=== PATIENT | female | born 1985 | race Caucasian/White ===

== ENCOUNTER 2018-11-16 13:02 | Outpatient (CLI) | payer BC ==
[~2018-11-16] VITALS: Ht 152.4 cm; Wt 54.1 kg
[2018-11-16] MEDS ORDERED: FLUO40CA12 PO (13:19)
[2018-11-16] MEDS ORDERED: DOCU-238 PO (13:19)
[2018-11-16 13:22] VITALS: BP 112/74
[2018-11-16 14:15] LABS: BASOPHILS # (AUTO) 0.1 10^3/uL (0.0-0.1); BASOPHILS % (AUTO) 1 % (0-10); EOSINOPHILS # (AUTO) 0.2 10^3/uL (0.0-0.3); EOSINOPHILS % (AUTO) 3 % (0-10); HEMATOCRIT 38 % (35-52); HEMOGLOBIN 12.2 G/DL (11.5-16.0); LYMPHOCYTES # (AUTO) 1.5 X 10^3 (1.0-4.0); LYMPHOCYTES % (AUTO) 28 % (12-44); MEAN CORPUSCULAR HEMOGLOBIN 31 PG (25-34); MEAN CORPUSCULAR HGB CONC 32 G/DL (32-36); MEAN CORPUSCULAR VOLUME 96 FL (80-99); MEAN PLATELET VOLUME 10.9 FL (7.4-10.4); MONOCYTES # (AUTO) 0.5 X 10^3 (0.0-1.0); MONOCYTES % (AUTO) 9 % (0-12); NEUTROPHILS # (AUTO) 3.3 X 10^3 (1.8-7.8); NEUTROPHILS % (AUTO) 59 % (42-75); PLATELET COUNT 263 10^3/uL (130-400); RED BLOOD COUNT 3.95 10^6/uL (4.35-5.85); RED CELL DISTRIBUTION WIDTH 13.6 % (10.0-14.5); WHITE BLOOD COUNT 5.6 10^3/uL (4.3-11.0)
[2018-11-16 14:15] LABS: BILIRUBIN,URINE NEGATIVE (NEGATIVE); CLARITY,URINE CLEAR; COLOR,URINE YELLOW; GLUCOSE, URINE (UA) NEGATIVE (NEGATIVE); KETONES,URINE NEGATIVE (NEGATIVE); LEUKOCYTE ESTERASE ,URINE NEGATIVE (NEGATIVE); NITRITE,URINE NEGATIVE (NEGATIVE); PH,URINE 8 (5-9); PROTEIN,URINE NEGATIVE (NEGATIVE); UROBILINOGEN,URINE NORMAL (NORMAL)
[2018-11-16 14:24] LABS: BACTERIA,URINE NEGATIVE /HPF; RBC,URINE RARE /HPF; SQUAMOUS EPITHELIAL CELL,UR 0-2 /HPF
[2018-11-18] MEDS ORDERED: HYDR-34 PO (03:07)
[2018-11-18] MEDS ORDERED: Benzocaine/Menthol TP (03:07)
[2018-11-18] MEDS ORDERED: IBUP-844 PO (03:07)
== END 2018-11-16 16:38 | disposition home or self-care (01) ==
LOC: PREOP 13:02
PROVIDERS: ATTEND Obstetrics & Gynecology
DX: Z01.812 Encounter for preprocedural laboratory examination (principal); Z11.2 Encounter for screening for other bacterial diseases; N81.10 Cystocele, unspecified; N81.6 Rectocele; N39.3 Stress incontinence (female) (male)
CPT/HCPCS: 36415; 81000; 84703; 85025; 87081

== ENCOUNTER 2018-11-17 08:45 | Day surgery (SDC) | payer BC ==
[~2018-11-17] VITALS: Ht 152.4 cm; Wt 54.1 kg
[~2018-11-17 08:45] MED LIST: DOCU-238 PO; FLUO40CA12 PO
--- OUTSIDE RECORDS SUMMARY | 2018-11-17 08:53 | XMS REPORT ---
Author Author ALVARADO ESCUDERO [facility] Address [address] [place] [address] Care Team Providers Care Economic Specialist Name Role Phone ALVARADO ESCUDERO Unavailable PROBLEMS Unknown Problems ALLERGIES No Known Allergies ENCOUNTERS Encounter Location Date Diagnosis [facility] [id number] [place] [address] [id number] Dec, Strep pharyngitis J02.0 and Influenza J11.1 [place] [id number] [place] [address] [id number] Oct, Sore throat J02.9 and PND (post-nasal drip) R09.82 [place] [address] [address] Mar, [facility] [address] [address] Mar, [place] [id number] [place] [address] [id number] Oct, [facility] [address] [address] Oct, [place] [id number] [place] [address] [phone] Jan, [facility] [address] [address] Dec, [place] [id number] [place] [address] [phone] Dec, IMMUNIZATIONS No Known Immunizations SOCIAL HISTORY Never Assessed REASON FOR VISIT Sore throat, fever, body aches, headache started yesterday Kalpana CHAVEZ PLAN OF CARE Activity Details Follow Up prn Reason: VITAL SIGNS Height 63 in 2017-12-09 Weight 114.1 lbs 2017-12-09 Temperature 102.5 degrees Fahrenheit 2017-12-09 Heart Rate 90 bpm 2017-12-09 Respiratory Rate 18 2017-12-09 BMI 20.21 kg/m2 2017-12-09 Blood pressure systolic 110 mmHg 2017-12-09 Blood pressure diastolic 60 mmHg 2017-12-09 MEDICATIONS Medication Instructions Dosage Frequency Start Date End Date Duration Status Amoxicillin 500 mg Orally 3 times a day 1 tablet 8h Dec, Dec, 10 days Active Tamiflu 75 MG Orally Twice a day 1 capsule 12h Dec, 5 day(s) Active RESULTS Name Result Date Reference Range INFLUENZA A & B (IN HOUSE) 2017-12-09 INFLUENZA A negative INFLUENZA B negative Control positive Lot # [id number] Exp date 01/03/20 STREP A (IN HOUSE) 2017-12-09 STREP A positive Control positive Lot # [id number] Exp date 07/19 PROCEDURES Procedure Date Ordered Result Body Site STREP A ASSAY W/OPTIC Dec 09, 2017 INFLUENZA ASSAY W/OPTIC Dec 09, 2017 INSTRUCTIONS MEDICATIONS ADMINISTERED No Known Medications MEDICAL (GENERAL) HISTORY Type Description Date Surgical History oral surgery Hospitalization History childbirth only
--- OUTSIDE RECORDS SUMMARY | 2018-11-17 08:53 | XMS REPORT ---
Author Author JENNIFER ABAD Organization [facility] Address [address] [place] [address] Care Team Providers Care Technology Training Associate Name Role Phone JENNIFER ABAD Unavailable PROBLEMS Unknown Problems ALLERGIES No Known Allergies ENCOUNTERS Encounter Location Date Diagnosis [facility] [id number] [place] [id number] Dec, Strep pharyngitis J02.0 and Influenza J11.1 [place] [id number] [place] [address] [id number] Oct, Sore throat J02.9 and PND (post-nasal drip) R09.82 [place] [address] [place] [id number] [place] [phone] Mar, [place] [id number] [address] Mar, [facility] [id number] [place] [address] [phone] Oct, [facility] [id number] [place] [phone] Oct, [place] [id number] [place] [address] [phone] Jan, [facility] [id number] [place] [phone] Dec, [address] [id number] Dec, IMMUNIZATIONS No Known Immunizations SOCIAL HISTORY Never Assessed REASON FOR VISIT Sore Throat, cough for 2 days Liliane AVENDANO PLAN OF CARE Activity Details Follow Up if s/s not improving with PCP or in Clinic Reason: VITAL SIGNS Height 63 in 2017-11-04 Weight 114.0 lbs 2017-11-04 Temperature 98.1 degrees Fahrenheit 2017-11-04 Heart Rate 72 bpm 2017-11-04 Respiratory Rate 18 2017-11-04 BMI 20.19 kg/m2 2017-11-04 Blood pressure systolic 100 mmHg 2017-11-04 Blood pressure diastolic 62 mmHg 2017-11-04 MEDICATIONS Medication Instructions Dosage Frequency Start Date End Date Duration Status Amoxicillin 500 mg Orally every 12 hrs 1 capsule 12h Oct, Oct, 10 day(s) Active RESULTS Name Result Date Reference Range STREP A (IN HOUSE) 2017-11-04 STREP A positive Control positive Lot # [id number] Exp date 06/18 PROCEDURES Procedure Date Ordered Result Body Site STREP A ASSAY W/OPTIC Nov 04, 2017 INSTRUCTIONS MEDICATIONS ADMINISTERED No Known Medications MEDICAL (GENERAL) HISTORY Type Description Date Surgical History oral surgery Hospitalization History childbirth only
--- OUTSIDE RECORDS SUMMARY | 2018-11-17 08:54 | XMS REPORT | CCD ---
Author Author Lydia Mehta MD, [facility] Address [address] [place] [address] Phone Care Team Providers Care Youth [employer] Director Name Role Phone PP Unavailable CCM Unavailable Summary Purpose Interface Exchange Insurance Providers Payer name Policy type / Coverage type Covered alliance party ID Effective Begin Date Effective End Date [place] [employer] [facility] [employer]/[facility] [id number] 2017 Unknown Family history Side Diagnosis Age At Onset *Denies any medical problems Unknown Side Diagnosis Age At Onset *Denies any medical problems Unknown Social History Social History Element Codes Description Effective Dates Number of children Unknown 2 08/06/[address]: 824719894 Never smoker 09/08/2014 Alcohol history Unknown occasionally drinks alcohol 09/08/2014 Allergies, Adverse Reactions, Alerts Substance Reaction Codes Entered Date Inactivated Date Status * NO KNOWN DRUG ALLERGIES Unknown 08/02/2011 No Inactive Date Active * NO KNOWN FOOD ALLERGIES Unknown 09/08/2014 No Inactive Date Active Past Medical History Illness Codes Condition Status Onset Date Resolved Date Cystocele, unspecified ICD-9: 618.00 ICD-10: N81.10 Active 11/02/2018 Unknown Uterovaginal prolapse, unspecified ICD-9: 618.1 ICD-10: N81.4 Active 11/02/2018 Unknown Generalized anxiety disorder ICD-9: 300.00 ICD-10: F41.1 Active 02/26/2018 Unknown Major depressive disorder, single episode, moderate ICD-9: 296.22 ICD-10: F32.1 Active 02/26/2018 Unknown Premenstrual tension syndrome ICD-9: 625.4 ICD-10: N94.3 Active 07/06/2018 Unknown Encounter for general adult medical examination with abnormal findings ICD-9: V70.0 ICD-10: Z00.01 Active 01/22/2018 Unknown Other fatigue ICD-9: 780.79 ICD-10: R53.83 Active 01/22/2018 Unknown Pelvic and perineal pain ICD-9: 625.9 ICD-10: R10.2 Active 01/22/2018 Unknown Constipation - functional ICD-9: 564.09 Active 09/08/2014 Unknown Depression ICD-9: 311 Active 09/08/2014 Unknown Fatigue ICD-9: 780.79 Active 09/08/2014 Unknown FLATUL/ERUCTAT/GAS PAIN ICD-9: 787.3 Active 09/08/2014 Unknown Menstrual irregularity ICD-9: 626.4 Active 09/08/2014 Unknown Depression Unknown Active 06/12/2012 Unknown Mole (skin) ICD-9: 216.9 Active 06/12/2012 Unknown Anemia Unknown Active 08/02/2011 Unknown Pharyngitis ICD-9: 462 Active 08/02/2011 Unknown Problems Condition Codes Effective Dates Condition Status Cystocele, unspecified ICD-9: 618.00 ICD-10: N81.10 11/02/2018 Active Uterovaginal prolapse, unspecified ICD-9: 618.1 ICD-10: N81.4 11/02/2018 Active Generalized anxiety disorder ICD-9: 300.00 ICD-10: F41.1 02/26/2018 Active Major depressive disorder, single episode, moderate ICD-9: 296.22 ICD-10: F32.1 02/26/2018 Active Premenstrual tension syndrome ICD-9: 625.4 ICD-10: N94.3 07/06/2018 Active Encounter for general adult medical examination with abnormal findings ICD-9: V70.0 ICD-10: Z00.01 01/22/2018 Active Other fatigue ICD-9: 780.79 ICD-10: R53.83 01/22/2018 Active Pelvic and perineal pain ICD-9: 625.9 ICD-10: R10.2 01/22/2018 Active Constipation - functional ICD-9: 564.09 09/08/2014 Active Depression ICD-9: 311 09/08/2014 Active Fatigue ICD-9: 780.79 09/08/2014 Active FLATUL/ERUCTAT/GAS PAIN ICD-9: 787.3 09/08/2014 Active Menstrual irregularity ICD-9: 626.4 09/08/2014 Active Depression Unknown 06/12/2012 Active Mole (skin) ICD-9: 216.9 06/12/2012 Active Anemia Unknown 08/02/2011 Active Pharyngitis ICD-9: 462 08/02/2011 Active Medications Medication Codes Instructions Start Date Stop Date Status Fill Instructions naproxen 500 mg tablet RxNorm: 180617 1 Tablet(s) PO BID 201711/06/2018 Active Prozac 40 mg capsule RxNorm: 791412 1 Capsule(s) PO daily 08/1811/15/2018 Active Prozac 40 mg capsule RxNorm: 923484 1 Capsule(s) PO daily 08/0607/31/2019 Active Prozac 40 mg capsule RxNorm: 165739 1 Capsule(s) PO daily 07/0608/04/2018 Inactive Prozac 20 mg capsule RxNorm: 926540 1 Capsule(s) PO daily 07/0107/30/2018 Inactive Prozac 20 mg capsule RxNorm: 856024 1 Capsule(s) PO daily 02/2605/26/2018 Inactive nystatin 100,000 unit/gram topical cream RxNorm: 306803 1 Gram(s) TOP BID as needed 01/22/2018 No Stop Date Active Diflucan 150 mg tablet RxNorm: 504763 1 Tablet(s) PO daily 01/28/2018 Inactive Prozac 10 mg capsule RxNorm: 528372 1 Capsule(s) PO daily 01/2202/20/2018 Inactive escitalopram 10 mg tablet RxNorm: 331244 1 Tablet(s) PO daily 09/08/2014 01/18/2018 Inactive Celexa 20 mg Tab RxNorm: 314068 1 Tablet(s) PO daily 201112/08/2012 Inactive Zithromax Z-Car 250 mg Tab RxNorm: 335283 Tablet(s) PO UD No Start Date 06/11/2012 Inactive + Iron Oral RxNorm: Oral No Start Date 06/11/2012 Inactive Loestrin 24 Fe 1 mg-20 mcg (24)/75 mg (4) Tab RxNorm: 4565702 1 Tablet(s) PO daily No Start Date 09/07/2014 Inactive Celexa 20 mg Tab RxNorm: 235373 1 Tablet(s) PO daily No Start Date 09/07/2014 Inactive Medication Administered No Medication Administered data Immunizations No Immunization data Assessments Condition Codes Effective Dates Uterovaginal prolapse, unspecified ICD-10: N81.4 ICD-9: 618.1 11/02/2018 Cystocele, unspecified ICD-10: N81.10 ICD-9: 618.00 11/02/2018 Generalized anxiety disorder ICD-10: F41.1 ICD-9: 300.00 08/06/2018 Premenstrual tension syndrome ICD-10: N94.3 ICD-9: 625.4 08/06/2018 Major depressive disorder, single episode, moderate ICD-10: F32.1 ICD-9: 296.22 08/06/2018 Pelvic and perineal pain ICD-10: R10.2 ICD-9: 625.9 01/22/2018 Encounter for general adult medical examination with abnormal findings ICD-10: Z00.01 ICD-9: V70.0 01/22/2018 Other fatigue ICD-10: R53.83 ICD-9: 780.79 01/22/2018 Depression ICD-9: 311 09/08/2014 FLATUL/ERUCTAT/GAS PAIN ICD-9: 787.3 08/2014 Fatigue ICD-9: 780.79 09/08/2014 Menstrual irregularity ICD-9: 626.4 09/08 Constipation - functional ICD-9: 564.09 09/08/2014 Mole (skin) ICD-9: 216.9 06/12/2012 Pharyngitis ICD-9: 462 08/02/2011 Reason For Visit Reason For Visit Effective Dates Notes pelvic pain 11/02/2018 medication follow up 08/06/2018 medication follow up 07/06/2018 medication follow up 02/26/2018 well woman exam (18-39 years) 01/22/2018 medication follow up 09/08/2014 fatigue 06/12/2012 also very [place] sore throat 08/02/2011 Results Observation Observation Code Item Item Code Result Date Cbc With Differential Ord2 WBC 6.91 K/ul 01/22/2018 Cbc With Differential Ord2 RBC 4.02 M/ul 01/22/2018 Cbc With Differential Ord2 HGB 12.5 g/dl 01/22/2018 Cbc With Differential Ord2 HCT 39.4 % 01/22/2018 Cbc With Differential Ord2 Neut% 58.9 % 01/22/2018 Cbc With Differential Ord2 Lymph% 26.5 % 01/22/2018 Cbc With Differential Ord2 MCV 98.0 fl 01/22/2018 Cbc With Differential Ord2 MCH 31.1 pg 01/22/2018 Cbc With Differential Ord2 Scurry% 10.7 % 01/22/2018 Cbc With Differential Ord2 MCHC 31.7 pg 01/22/2018 Cbc With Differential Ord2 Eos% 3.3 % 01/22/2018 Cbc With Differential Ord2 PLT 275 K/ul 01/22/2018 Cbc With Differential Ord2 Baso% 0.6 % 01/22/2018 Cbc With Differential Ord2 RDW 14.9 % 01/22/2018 Cbc With Differential Ord2 Neut ABS# 4.07 K/ul 01/22/2018 Cbc With Differential Ord2 Lymph ABS# 1.83 K/ul 01/22/2018 Cbc With Differential Ord2 Scurry ABS# 0.7 K/ul 01/22/2018 Cbc With Differential Ord2 Eos ABS# 0.2 K/ul 01/22/2018 Cbc With Differential Ord2 Baso ABS# 0.0 K/ul 01/22/2018 Lipid Ord30 CHOL 164 mg/dL 01/22/2018 Lipid Ord30 HDL 64.0 mg/dl 01/22/2018 Lipid Ord30 TRIG 87 mg/dL 01/22/2018 Lipid Ord30 LDL 83 mg/dL 01/22/2018 Lipid Ord30 C/HDL 2.6 Ratio 01/22/2018 Comp Metabolic Hdj988 NA 142 mEq/L 01/22/2018 Comp Metabolic Jja205 K 3.7 mEq/L 01/22/2018 Comp Metabolic Dgc416 CL 105 mEq/L 01/22/2018 Comp Metabolic Kez128 CO2 30.0 mEq/L 01/22/2018 Comp Metabolic Qlw237 ANION GAP 11 01/22/2018 Comp Metabolic Kgt369 GLUCOSE 81 mg/dL 01/22/2018 Comp Metabolic Qjg254 Creat 0.6 mg/dL 01/22/2018 Comp Metabolic Xbf169 eGFR 121 ml/min/1.73m2 01/22/2018 Comp Metabolic Bxz760 BUN 11 mg/dL 01/22/2018 Comp Metabolic Riz761 B/C Ratio 18.0 Ratio 01/22/2018 Comp Metabolic Fhc531 CALCIUM 9.9 mg/dL 01/22/2018 Comp Metabolic Nvx155 ALK PHOS 73 U/L 01/22/2018 Comp Metabolic Qzi732 AST(SGOT) 21 U/L 01/22/2018 Comp Metabolic Syd997 ALT(SGPT) 12 U/L 01/22/2018 Comp Metabolic Rdj777 BILI T 0.4 mg/dL 01/22/2018 Comp Metabolic Fes707 ALBUMIN 4.7 g/dL 01/22/2018 Comp Metabolic Xlt040 TPRO 7.8 g/dL 01/22/2018 Comp Metabolic Gxi151 GLOB 3.1 g/dL 01/22/2018 Comp Metabolic Biy014 A/G Ratio 1.5 Ratio 01/22/2018 Comp Metabolic Zxj489 Osmo 282 mOsmo 01/22/2018 Tsh Ord6 TSH (3rd IS) 2.35 uIU/mL 01/22/2018 Review of Systems System Result Effective Dates Constitutional No recent illness 2017 Constitutional No chills 11/02/2018 Constitutional No diaphoresis 11/02/2018 Constitutional No fever 11/02/2018 Eyes No eye erythema 11/02/2018 Ears/Nose/Throat/Neck No nasal discharge 11/02/2018 Cardiovascular No chest pain/pressure 01/2018 Cardiovascular No dyspnea 11/02/2018 Respiratory No cough 11/02/2018 Gastrointestinal abdominal pain 2017 Genitourinary/Nephrology No vaginal discharge 11/02/2018 Neurologic No alteration of consciousness 11/02/2018 Neurologic No mental status change 2017 Constitutional No recent illness 2017 Constitutional No chills 08/06/2018 Constitutional No diaphoresis 08/06/2018 Constitutional No fever 08/06/2018 Eyes No eye erythema 08/06/2018 Ears/Nose/Throat/Neck No nasal allergies 08/06/2018 Ears/Nose/Throat/Neck No nasal discharge 08/06/2018 Cardiovascular No chest pain/pressure 05/2018 Cardiovascular No dyspnea 08/06/2018 Respiratory No chest congestion 2017 Respiratory No cough 08/06/2018 Gastrointestinal No abdominal pain 2017 Gastrointestinal No constipation 2017 Gastrointestinal No diarrhea 08/06/2018 Musculoskeletal No joint complaint 2017 Dermatologic No rash 08/06/2018 Neurologic No alteration of consciousness 08/06/2018 Neurologic No mental status change 2017 Psychiatric anxiety 08/06/2018 Psychiatric depression 08/06/2018 Constitutional No recent illness 2017 Constitutional No chills 07/06/2018 Constitutional No diaphoresis 07/06/2018 Constitutional No fever 07/06/2018 Eyes No eye erythema 07/06/2018 Ears/Nose/Throat/Neck No nasal allergies 07/06/2018 Ears/Nose/Throat/Neck No nasal discharge 07/06/2018 Cardiovascular No chest pain/pressure 05/2018 Cardiovascular No dyspnea 07/06/2018 Respiratory No chest congestion 2017 Respiratory No cough 07/06/2018 Gastrointestinal No abdominal pain 2017 Gastrointestinal No constipation 2017 Gastrointestinal No diarrhea 07/06/2018 Musculoskeletal No joint complaint 2017 Dermatologic No rash 07/06/2018 Neurologic No alteration of consciousness 07/06/2018 Neurologic No mental status change 2017 Psychiatric anxiety 07/06/2018 Psychiatric depression 07/06/2018 Constitutional No recent illness 2017 Constitutional No chills 02/26/2018 Constitutional No diaphoresis 02/26/2018 Constitutional No fever 02/26/2018 Ears/Nose/Throat/Neck No nasal discharge 02/26/2018 Ears/Nose/Throat/Neck No nasal allergies 02/26/2018 Eyes No eye erythema 02/26/2018 Cardiovascular No chest pain/pressure Cardiovascular No dyspnea 02/26/2018 Respiratory No cough 02/26/2018 Respiratory No chest congestion 2017 Gastrointestinal No abdominal pain 2017 Gastrointestinal No constipation 2017 Gastrointestinal No diarrhea 02/26/2018 Musculoskeletal No joint complaint 2017 Dermatologic No rash 02/26/2018 Neurologic No alteration of consciousness 02/26/2018 Neurologic No mental status change 2017 Psychiatric anxiety 02/26/2018 Psychiatric depression 02/26/2018 Constitutional recent illness 01/22/2018 Constitutional No chills 01/22/2018 Constitutional No diaphoresis 01/22/2018 Constitutional No fever 01/22/2018 Eyes No eye erythema 01/22/2018 Ears/Nose/Throat/Neck No nasal discharge 01/22/2018 Cardiovascular No chest pain/pressure Cardiovascular No dyspnea 01/22/2018 Respiratory No cough 01/22/2018 Respiratory No chest congestion 2017 Gastrointestinal No abdominal pain 2017 Genitourinary/Nephrology dysuria 2017 Genitourinary/Nephrology pelvic pain Dermatologic No rash 01/22/2018 Neurologic No alteration of consciousness 01/22/2018 Neurologic No mental status change 2017 Psychiatric anxiety 01/22/2018 Psychiatric depression 01/22/2018 Constitutional No recent illness 2013 Constitutional No anorexia 09/08/2014 Constitutional No night sweats 2013 Constitutional No chills 09/08/2014 Constitutional No diaphoresis 09/08/2014 Constitutional No fever 09/08/2014 Constitutional No insomnia 09/08/2014 Eyes No eye discharge 09/08/2014 Eyes No eye erythema 09/08/2014 Ears/Nose/Throat/Neck No dizziness 2013 Ears/Nose/Throat/Neck No headache 2013 Ears/Nose/Throat/Neck No nasal allergies 09/08/2014 Ears/Nose/Throat/Neck No nasal discharge 09/08/2014 Cardiovascular No chest pain/pressure 08/2014 Respiratory No productive sputum 2013 Respiratory No chest congestion 2013 Respiratory No cough 09/08/2014 Gastrointestinal No diarrhea 09/08/2014 Gastrointestinal No nausea 09/08/2014 Gastrointestinal No vomiting 09/08/2014 Genitourinary/Nephrology No dysuria 09/08 Musculoskeletal No joint complaint 2013 Neurologic No alteration of consciousness 09/08/2014 Hematologic/Lymphatic No abnormal ecchymoses 09/08/2014 Hematologic/Lymphatic No petechiae 2013 Hematologic/Lymphatic No abnormal bleeding and bruising 09/08/2014 Hematologic/Lymphatic anemia 09/08/2014 Allergy/Immunology No anaphylactoid reaction 09/08/2014 Allergy/Immunology No angioedema 2013 Allergy/Immunology No food allergy 2013 Psychiatric depression 09/08/2014 Psychiatric No anxiety 09/08/2014 Dermatologic No rash 09/08/2014 Genitourinary/Nephrology menstrual irregularity 09/08/2014 Gastrointestinal constipation 09/08/2014 Gastrointestinal gas and bloating 2013 Constitutional malaise 09/08/2014 Constitutional fatigue 09/08/2014 Constitutional No recent illness 2011 Constitutional No anorexia 06/12/2012 Constitutional No chills 06/12/2012 Constitutional No night sweats 2011 Constitutional No diaphoresis 06/12/2012 Constitutional No fever 06/12/2012 Constitutional No insomnia 06/12/2012 Constitutional No malaise 06/12/2012 Eyes No eye discharge 06/12/2012 Eyes No eye erythema 06/12/2012 Ears/Nose/Throat/Neck No dizziness 2011 Ears/Nose/Throat/Neck No headache 2011 Ears/Nose/Throat/Neck No nasal allergies 06/12/2012 Ears/Nose/Throat/Neck No nasal discharge 06/12/2012 Cardiovascular No chest pain/pressure Respiratory No productive sputum 2011 Respiratory No chest congestion 2011 Respiratory No cough 06/12/2012 Gastrointestinal No vomiting 06/12/2012 Gastrointestinal No nausea 06/12/2012 Gastrointestinal No abdominal pain 2011 Gastrointestinal No constipation 2011 Gastrointestinal No diarrhea 06/12/2012 Genitourinary/Nephrology No dysuria 06/12 Musculoskeletal No joint complaint 2011 Neurologic No alteration of consciousness 06/12/2012 Hematologic/Lymphatic No abnormal ecchymoses 06/12/2012 Hematologic/Lymphatic No petechiae 2011 Hematologic/Lymphatic No abnormal bleeding and bruising 06/12/2012 Allergy/Immunology No anaphylactoid reaction 06/12/2012 Allergy/Immunology No angioedema 2011 Allergy/Immunology No food allergy 2011 Hematologic/Lymphatic anemia 06/12/2012 Gastrointestinal No nausea 08/02/2011 Gastrointestinal No vomiting 08/02/2011 Constitutional No fever 08/02/2011 Constitutional No insomnia 08/02/2011 Eyes No eye discharge 08/02/2011 Eyes No eye erythema 08/02/2011 Ears/Nose/Throat/Neck No facial pain 01/2011 Ears/Nose/Throat/Neck No facial swelling 08/02/2011 Ears/Nose/Throat/Neck No nasal allergies 08/02/2011 Ears/Nose/Throat/Neck No nasal discharge 08/02/2011 Ears/Nose/Throat/Neck No sinus congestion 08/02/2011 Cardiovascular No fatigue 08/02/2011 Cardiovascular No edema 08/02/2011 Cardiovascular No chest pain/pressure 01/2011 Respiratory No chest congestion 2010 Respiratory No chest tightness 2010 Respiratory No cough 08/02/2011 Gastrointestinal No abdominal pain 2010 Gastrointestinal No constipation 2010 Gastrointestinal No diarrhea 08/02/2011 Physical Exam Exam Name System Name Item Name Status Result Effective Dates Notes Full Exam - Genitourinary/Female Constitutional general appearance Overall: well nourished 11/02/2018 None Full Exam - Genitourinary/Female Constitutional general appearance Overall: well developed 11/02/2018 None Full Exam - Genitourinary/Female Constitutional general appearance Overall: in no acute distress 11/02/2018 None Full Exam - Genitourinary/Female Eyes conjunctiva/eyelids Overall: eyelids normal 11/02/2018 None Full Exam - Genitourinary/Female Eyes conjunctiva/eyelids Overall: cornea clear 11/02/2018 None Full Exam - Genitourinary/Female Eyes conjunctiva/eyelids Overall: conjunctiva clear 11/02/2018 None Full Exam - Genitourinary/Female Ears/Nose/Throat oral cavity/pharynx/larynx Overall: oral mucosa clear 11/02/2018 None Full Exam - Genitourinary/Female Ears/Nose/Throat lips/teeth/gingiva Overall: benign lips 11/02/2018 None Full Exam - Genitourinary/Female Respiratory respiratory effort/rhythm Overall: normal rate 11/02/2018 None Full Exam - Genitourinary/Female Respiratory respiratory effort/rhythm Overall: no retractions 11/02/2018 None Full Exam - Genitourinary/Female Genitourinary bladder Palpation: cystocele 2nd degree 11/02/2018 None Full Exam - Genitourinary/Female Genitourinary uterus Position: prolapse 11/02/2018 None Full Exam - Genitourinary/Female Musculoskeletal gait and station Overall: normal station 11/02/2018 None Full Exam - Genitourinary/Female Musculoskeletal gait and station Overall: normal gait 11/02/2018 None Full Exam - Genitourinary/Female Neurologic mood and affect Overall: normal affect 11/02/2018 None Full Exam - Genitourinary/Female Neurologic mood and affect Overall: normal mood 11/02/2018 None Full Exam - Genitourinary/Female Neurologic orientation Overall: oriented to person, place and time 11/02/2018 None Full Exam - Genitourinary/Female Psychiatric orientation/consciousness Overall: oriented to person, place and time 11/02/2018 None Full Exam - Genitourinary/Female Psychiatric appearance Overall: well-groomed, good eye contact 11/02/2018 None Full Exam - General 1995 Constitutional general appearance Overall: well developed 08/06/2018 None Full Exam - General 1994 Constitutional general appearance Overall: in no acute distress 08/06/2018 None Full Exam - General 1995 Constitutional general appearance Overall: well nourished 08/06/2018 None Full Exam - General 1995 Eyes conjunctiva /eyelids Overall: conjunctiva clear 08/06/2018 None Full Exam - General 1995 Eyes conjunctiva /eyelids Overall: cornea clear 08/06/2018 None Full Exam - General 1994 Eyes conjunctiva /eyelids Overall: eyelids normal 08/06/2018 None Full Exam - General 1995 Ears/Nose/Throat lips/teeth/gingiva Overall: benign lips 08/06/2018 None Full Exam - General 1995 Ears/Nose/Throat oral cavity/pharynx/larynx Overall: oral mucosa clear 08/06/2018 None Full Exam - General 1994 Respiratory auscultation Overall: breath sounds clear bilaterally 08/06/2018 None Full Exam - General 1994 Respiratory respiratory effort/rhythm Overall: no retractions 08/06/2018 None Full Exam - General 1994 Respiratory respiratory effort/rhythm Overall: normal rate 08/06/2018 None Full Exam - General 1994 Cardiovascular auscultation of heart Overall: regular rate 08/06/2018 None Full Exam - General 1994 Cardiovascular auscultation of heart Overall: normal heart sounds 08/06/2018 None Full Exam - General 1994 Musculoskeletal gait and station Overall: normal gait 08/06/2018 None Full Exam - General 1994 Musculoskeletal gait and station Overall: normal station 08/06/2018 None Full Exam - General 1994 Musculoskeletal head and neck Overall: head atraumatic 08/06/2018 None Full Exam - General 1994 Neurologic cranial nerves Overall: crainial nerves 2 - 12 grossly intact 08/06/2018 None Full Exam - General 1994 Psychiatric orientation/consciousness Overall: oriented to person, place and time 08/06/2018 None Full Exam - General 1994 Psychiatric mood and affect Overall: normal mood and affect 08/06/2018 None Full Exam - General 1994 Psychiatric appearance Overall: well-groomed, good eye contact 08/06/2018 None Full Exam - General 1994 Constitutional general appearance Overall: well developed 07/06/2018 None Full Exam - General 1994 Constitutional general appearance Overall: in no acute distress 07/06/2018 None Full Exam - General 1994 Constitutional general appearance Overall: well nourished 07/06/2018 None Full Exam - General 1994 Eyes conjunctiva /eyelids Overall: conjunctiva clear 07/06/2018 None Full Exam - General 1994 Eyes conjunctiva /eyelids Overall: cornea clear 07/06/2018 None Full Exam - General 1994 Eyes conjunctiva /eyelids Overall: eyelids normal 07/06/2018 None Full Exam - General 1995 Ears/Nose/Throat otoscopic exam Overall: external auditory canals clear 07/06/2018 None Full Exam - General 1994 Ears/Nose/Throat otoscopic exam Overall: tympanic membranes clear 07/06/2018 None Full Exam - General 1994 Ears/Nose/Throat lips/teeth/gingiva Overall: benign lips 07/06/2018 None Full Exam - General 1994 Ears/Nose/Throat oral cavity/pharynx/larynx Overall: oral mucosa clear 07/06/2018 None Full Exam - General 1994 Respiratory auscultation Overall: breath sounds clear bilaterally 07/06/2018 None Full Exam - General 1994 Respiratory respiratory effort/rhythm Overall: no retractions 07/06/2018 None Full Exam - General 1994 Respiratory respiratory effort/rhythm Overall: normal rate 07/06/2018 None Full Exam - General 1994 Cardiovascular auscultation of heart Overall: regular rate 07/06/2018 None Full Exam - General 1994 Cardiovascular auscultation of heart Overall: normal heart sounds 07/06/2018 None Full Exam - General 1994 Musculoskeletal gait and station Overall: normal gait 07/06/2018 None Full Exam - General 1994 Musculoskeletal gait and station Overall: normal station 07/06/2018 None Full Exam - General 1994 Musculoskeletal head and neck Overall: head atraumatic 07/06/2018 None Full Exam - General 1994 Neurologic cranial nerves Overall: crainial nerves 2 - 12 grossly intact 07/06/2018 None Full Exam - General 1994 Psychiatric orientation/consciousness Overall: oriented to person, place and time 07/06/2018 None Full Exam - General 1994 Psychiatric mood and affect Overall: normal mood and affect 07/06/2018 None Full Exam - General 1994 Psychiatric appearance Overall: well-groomed, good eye contact 07/06/2018 None Full Exam - General 1994 Constitutional general appearance Overall: well developed 02/26/2018 None Full Exam - General 1994 Constitutional general appearance Overall: in no acute distress 02/26/2018 None Full Exam - General 1994 Constitutional general appearance Overall: well nourished 02/26/2018 None Full Exam - General 1994 Eyes conjunctiva /eyelids Overall: conjunctiva clear 02/26/2018 None Full Exam - General 1994 Eyes conjunctiva /eyelids Overall: cornea clear 02/26/2018 None Full Exam - General 1994 Eyes conjunctiva /eyelids Overall: eyelids normal 02/26/2018 None Full Exam - General 1994 Ears/Nose/Throat lips/teeth/gingiva Overall: benign lips 02/26/2018 None Full Exam - General 1994 Ears/Nose/Throat oral cavity/pharynx/larynx Overall: oral mucosa clear 02/26/2018 None Full Exam - General 1994 Ears/Nose/Throat otoscopic exam Overall: external auditory canals clear 02/26/2018 None Full Exam - General 1994 Ears/Nose/Throat otoscopic exam Overall: tympanic membranes clear 02/26/2018 None Full Exam - General 1994 Respiratory respiratory effort/rhythm Overall: normal rate 02/26/2018 None Full Exam - General 1994 Respiratory respiratory effort/rhythm Overall: no retractions 02/26/2018 None Full Exam - General 1994 Respiratory auscultation Overall: breath sounds clear bilaterally 02/26/2018 None Full Exam - General 1994 Cardiovascular auscultation of heart Overall: regular rate 02/26/2018 None Full Exam - General 1994 Cardiovascular auscultation of heart Overall: normal heart sounds 02/26/2018 None Full Exam - General 1994 Musculoskeletal head and neck Overall: head atraumatic 02/26/2018 None Full Exam - General 1994 Musculoskeletal gait and station Overall: normal gait 02/26/2018 None Full Exam - General 1994 Musculoskeletal gait and station Overall: normal station 02/26/2018 None Full Exam - General 1994 Neurologic cranial nerves Overall: crainial nerves 2 - 12 grossly intact 02/26/2018 None Full Exam - General 1994 Psychiatric orientation/consciousness Overall: oriented to person, place and time 02/26/2018 None Full Exam - General 1994 Psychiatric mood and affect Overall: normal mood and affect 02/26/2018 None Full Exam - General 1994 Psychiatric appearance Overall: well-groomed, good eye contact 02/26/2018 None Full Exam - Genitourinary/Female Constitutional general appearance Overall: well nourished 01/22/2018 None Full Exam - Genitourinary/Female Constitutional general appearance Overall: well developed 01/22/2018 None Full Exam - Genitourinary/Female Constitutional general appearance Overall: in no acute distress 01/22/2018 None Full Exam - Genitourinary/Female Eyes conjunctiva/eyelids Overall: conjunctiva clear 01/22/2018 None Full Exam - Genitourinary/Female Eyes conjunctiva/eyelids Overall: cornea clear 01/22/2018 None Full Exam - Genitourinary/Female Eyes conjunctiva/eyelids Overall: eyelids normal 01/22/2018 None Full Exam - Genitourinary/Female Ears/Nose/Throat lips/teeth/gingiva Overall: benign lips 01/22/2018 None Full Exam - Genitourinary/Female Ears/Nose/Throat oral cavity/pharynx/larynx Overall: oral mucosa clear 01/22/2018 None Full Exam - Genitourinary/Female Genitourinary breast inspection & palpation Overall: breasts symmetric and without lesions 01/22/2018 None Full Exam - Genitourinary/Female Genitourinary breast inspection & palpation Overall: normal chest shape 01/22/2018 None Full Exam - Genitourinary/Female Genitourinary breast inspection & palpation Overall: breasts non-tender, no mass lesions 01/22/2018 None Full Exam - Genitourinary/Female Genitourinary breast inspection & palpation Overall: no nipple discharge 01/22/2018 None Full Exam - Genitourinary/Female Genitourinary external genitalia Overall: no discharge 01/22/2018 None Full Exam - Genitourinary/Female Genitourinary external genitalia Overall: no lesions 01/22/2018 None Full Exam - Genitourinary/Female Genitourinary cervix Overall: no discharge 01/22/2018 None Full Exam - Genitourinary/Female Genitourinary cervix Overall: no lesions 01/22/2018 None Full Exam - Genitourinary/Female Genitourinary cervix Overall: no cervical motion tenderness 01/22/2018 None Full Exam - Genitourinary/Female Genitourinary uterus Overall: normal size 01/22/2018 None Full Exam - Genitourinary/Female Genitourinary adnexa/parametria Overall: no tenderness 01/22/2018 None Full Exam - Genitourinary/Female Genitourinary vagina Overall: no discharge 01/22/2018 None Full Exam - Genitourinary/Female Genitourinary vagina Overall: no lesions 01/22/2018 None Full Exam - Genitourinary/Female Genitourinary vagina Overall: normal tone 01/22/2018 None Full Exam - Genitourinary/Female Musculoskeletal gait and station Overall: normal gait 01/22/2018 None Full Exam - Genitourinary/Female Musculoskeletal gait and station Overall: normal station 01/22/2018 None Full Exam - Genitourinary/Female Musculoskeletal head and neck Overall: head atraumatic 01/22/2018 None Full Exam - Genitourinary/Female Psychiatric orientation/consciousness Overall: oriented to person, place and time 01/22/2018 None Full Exam - Genitourinary/Female Psychiatric appearance Overall: well-groomed, good eye contact 01/22/2018 None Full Exam - Genitourinary/Female Psychiatric speech Overall: normal quality, no aphasia 01/22/2018 None Full Exam - Genitourinary/Female Psychiatric speech Overall: normal quality, quantity, rate 01/22/2018 None Full Exam - General 1994 Constitutional general appearance Development: well developed 09/08/2014 None Full Exam - General 1994 Constitutional general appearance Development: appears stated age 1009/08/2014 None Full Exam - General 1994 Eyes conjunctiva /eyelids Overall: conjunctiva clear 09/08/2014 None Full Exam - General 1994 Eyes pupils and irises Overall: pupils equal, round, reactive to light and accomodation 09/08/2014 None Full Exam - General 1994 Ears/Nose/Throat otoscopic exam Overall: external auditory canals clear 09/08/2014 None Full Exam - General 1994 Ears/Nose/Throat otoscopic exam Overall: tympanic membranes clear 09/08/2014 None Full Exam - General 1994 Ears/Nose/Throat oral cavity/pharynx/larynx Overall: oral mucosa clear 09/08/2014 None Full Exam - General 1994 Ears/Nose/Throat oral cavity/pharynx/larynx Overall: oropharyngeal mucosa clear 09/08/2014 None Full Exam - General 1994 Ears/Nose/Throat oral cavity/pharynx/larynx Overall: no masses 09/08/2014 None Full Exam - General 1994 Respiratory auscultation Overall: breath sounds clear bilaterally 09/08/2014 None Full Exam - General 1994 Respiratory respiratory effort/rhythm Overall: no retractions 09/08/2014 None Full Exam - General 1994 Respiratory respiratory effort/rhythm Overall: normal rate 09/08/2014 None Full Exam - General 1994 Cardiovascular auscultation of heart Overall: regular rate 09/08/2014 None Full Exam - General 1994 Cardiovascular auscultation of heart Overall: normal heart sounds 09/08/2014 None Full Exam - General 1994 Cardiovascular auscultation of heart Overall: no murmurs 09/08/2014 None Full Exam - General 1994 Abdomen abdominal exam Overall: no tenderness 09/08/2014 None Full Exam - General 1994 Abdomen abdominal exam Overall: normal bowel sounds 09/08/2014 None Full Exam - General 1994 Lymphatic neck nodes Overall: anterior cervical chain benign 09/08/2014 None Full Exam - General 1994 Lymphatic neck nodes Overall: posterior cervical chain benign 09/08/2014 None Full Exam - General 1994 Integument inspection of skin Dermatitis: mole 09/08/2014 brown macule left areola-patient reports not changing or enlarging. Macule to mid abdomen brown with slightly collar shaper operator coloring in the central portion of the mole, regular round borders-not changing. Striae noted to left lower abdomen-patient has a brown macule in the striae with elongated borders, no abnormal coloring. Full Exam - General 1994 Neurologic deep tendon reflexes Overall: deep tendon reflexes intact 09/08/2014 None Full Exam - General 1994 Neurologic cranial nerves Overall: crainial nerves 2 - 12 grossly intact 09/08/2014 None Full Exam - General 1994 Psychiatric orientation/consciousness Overall: oriented to person, place and time 09/08/2014 None Full Exam - General 1994 Psychiatric mood and affect Mood: depressed 09/08/2014 None Full Exam - General 1994 Psychiatric mood and affect Affect: a normal exam 09/08/2014 None Full Exam - General 1994 Psychiatric mood and affect Appropriateness: appropriate emotional responses 09/08/2014 None Full Exam - General 1994 Abdomen abdominal exam Percussion: dull 09/08/2014 None Full Exam - General 1994 Psychiatric orientation/consciousness Overall: oriented to person, place and time 06/12/2012 None Full Exam - General 1994 Psychiatric mood and affect Mood: depressed 06/12/2012 None Full Exam - General 1994 Psychiatric mood and affect Affect: a normal exam 06/12/2012 None Full Exam - General 1994 Psychiatric mood and affect Appropriateness: appropriate emotional responses 06/12/2012 None Full Exam - General 1994 Neurologic deep tendon reflexes Overall: deep tendon reflexes intact 06/12/2012 None Full Exam - General 1994 Neurologic cranial nerves Overall: crainial nerves 2 - 12 grossly intact 06/12/2012 None Full Exam - General 1994 Lymphatic neck nodes Overall: anterior cervical chain benign 06/12/2012 None Full Exam - General 1994 Lymphatic neck nodes Overall: posterior cervical chain benign 06/12/2012 None Full Exam - General 1994 Integument inspection of skin Dermatitis: mole 06/12/2012 brown macule left areola-patient reports not changing or enlarging. Macule to mid abdomen brown with slightly collar shaper operator coloring in the central portion of the mole, regular round borders-not changing. Striae noted to left lower abdomen-patient has a brown macule in the striae with elongated borders, no abnormal coloring. Full Exam - General 1994 Constitutional general appearance Development: well developed 06/12/2012 None Full Exam - General 1994 Constitutional general appearance Development: appears stated age 0706/12/2012 None Full Exam - General 1994 Abdomen abdominal exam Overall: no tenderness 06/12/2012 None Full Exam - General 1994 Abdomen abdominal exam Overall: normal bowel sounds 06/12/2012 None Full Exam - General 1994 Cardiovascular auscultation of heart Overall: regular rate 06/12/2012 None Full Exam - General 1994 Cardiovascular auscultation of heart Overall: normal heart sounds 06/12/2012 None Full Exam - General 1994 Cardiovascular auscultation of heart Overall: no murmurs 06/12/2012 None Full Exam - General 1994 Respiratory auscultation Overall: breath sounds clear bilaterally 06/12/2012 None Full Exam - General 1994 Respiratory respiratory effort/rhythm Overall: normal rate 06/12/2012 None Full Exam - General 1994 Respiratory respiratory effort/rhythm Overall: no retractions 06/12/2012 None Full Exam - General 1994 Ears/Nose/Throat otoscopic exam Overall: tympanic membranes clear 06/12/2012 None Full Exam - General 1994 Ears/Nose/Throat otoscopic exam Overall: external auditory canals clear 06/12/2012 None Full Exam - General 1994 Ears/Nose/Throat oral cavity/pharynx/larynx Overall: oropharyngeal mucosa clear 06/12/2012 None Full Exam - General 1994 Ears/Nose/Throat oral cavity/pharynx/larynx Overall: no masses 06/12/2012 None Full Exam - General 1994 Ears/Nose/Throat oral cavity/pharynx/larynx Overall: oral mucosa clear 06/12/2012 None Full Exam - General 1994 Eyes pupils and irises Overall: pupils equal, round, reactive to light and accomodation 06/12/2012 None Full Exam - General 1995 Eyes conjunctiva /eyelids Overall: conjunctiva clear 06/12/2012 None Full Exam - ENT Constitutional general appearance Overall: well nourished 08/02/2011 None Full Exam - ENT Constitutional general appearance Overall: well developed 08/02/2011 None Full Exam - ENT Constitutional general appearance Overall: in no acute distress 08/02/2011 None Full Exam - ENT Ears/Nose/Throat otoscopic exam Left tympanic membrane: erythematous 08/02/2011 None Full Exam - ENT Ears/Nose/Throat otoscopic exam Left tympanic membrane: air -fluid level 08/02/2011 None Full Exam - ENT Ears/Nose/Throat otoscopic exam Right tympanic membrane: a normal exam 08/02/2011 None Full Exam - ENT Ears/Nose/Throat otoscopic exam Otorrhea: absent 08/02/2011 None Full Exam - ENT Ears/Nose/Throat oropharynx Posterior Pharynx: erythema 08/02/2011 None Full Exam - ENT Respiratory auscultation Overall: breath sounds clear bilaterally 08/02/2011 None Full Exam - ENT Cardiovascular auscultation of heart Overall: normal heart sounds 08/02/2011 None Full Exam - ENT Lymphatic palpation of lymph nodes Overall: shotty lymphadenopathy 08/02/2011 None Procedures No Procedures data Vital Signs Date Vital 11/02/2018 Blood Pressure 1: 120/74 Code : 8480-6 BMI: 21.6 Code : 86945-6 Heart Rate 1 : 85 bpm Height: 5'2" SpO2: 97% Weight: 120 lbs 08/06/2018 Blood Pressure 1: 100/60 Code : 8480-6 BMI: 20.9 Code : 47357-0 Heart Rate 1 : 80 bpm Height: 5'2" SpO2: 98% Weight: 116 lbs 07/06/2018 Blood Pressure 1: 120/68 Code : 8480-6 BMI: 20.9 Code : 35475-5 Heart Rate 1 : 74 bpm Height: 5'2" SpO2: 97% Weight: 116 lbs 02/26/2018 Blood Pressure 1: 104/60 Code : 8480-6 BMI: 20.7 Code : 77987-0 Heart Rate 1 : 61 bpm Height: 5'2" SpO2: 98% Weight: 115 lbs 01/22/2018 Blood Pressure 1: 110/66 Code : 8480-6 BMI: 20.7 Code : 86875-3 Heart Rate 1 : 75 bpm Height: 5'2" SpO2: 97% Weight: 115 lbs 09/08/2014 Blood Pressure 1: 98/68 Code : 8480-6 BMI: 20.9 Code : 71195-7 Heart Rate 1 : 78 bpm Height: 5'2" Weight: 116 lbs 06/12/2012 Blood Pressure 1: 112/78 Code : 8480-6 Heart Rate 1: 82 bpm Respiratory Rate : 16 bpm Weight: 115 lbs 08/02/2011 Blood Pressure 1: 97/55 Code : 8480-6 BMI: 23.4 Code : 96384-5 Heart Rate 1 : 90 bpm Height: 5'2" Temperature: 36.9 (C) / 98.4 (F) Weight: 130 lbs Functional Status No Functional Status data History of Present Illness Symptom Name Status Result Effective Date Notes Location diffusely None Quality aching 2017 None Quality cramping 01/2018 None Onset and Resolution sudden in onset 11/02/2018 None Onset of Symptom 3 days ago 11/02/2018 None Location diffusely None Location in the suprapubic area 11/02/2018 None Quality aching 2017 None Quality cramping 01/2018 None Onset and Resolution sudden in onset 11/02/2018 None Onset of Symptom 3 days ago 11/02/2018 None PMS/PMDD Onset and Resolution ongoing 08/06/2018 None medication follow up Additional Comments medication use 08/06/2018 None medication follow up Additional Comments medication use 07/06/2018 None PMS/PMDD Onset and Resolution ongoing 07/06/2018 None medication follow up Additional Comments medication use 02/26/2018 None medication follow up Location oral intake 02/26/2018 None medication follow up Quality chronic 02/26/2018 None medication follow up Significant Past Medical History Other: anxiety 02/26/2018 None well woman exam (18-39 years) Control partner S/P vasectomy 01/22/2018 None well woman exam (18-39 years) Pap Smear last normal performed on 201401/22/2018 None well woman exam (18-39 years) Menstrual History last menstrual period 02--18 01/22/2018 None well woman exam (18-39 years) Menstrual History regular menses 01/22/2018 None well woman exam (18-39 years) Menstrual History normal flow 01/22/2018 None flushing Quality intermittent 09/08/2014 None flushing Frequency of Episodes daily 09/08/2014 None flushing Pertinent Findings Denies increased appetite 09/08/2014 None flushing Pertinent Findings irritability 09/08/2014 None flushing Pertinent Findings subjective feeling of warmth 09/08/2014 None gas and bloating Quality intermittent 09/08/2014 diet changed with no results gas and bloating Frequency of Episodes daily 09/08/2014 None gas and bloating Pertinent Findings abdominal distension 09/08/2014 - usually worse with her cycle, but she cannot seem to get her bloating regulated - gas and bloating Pertinent Findings Denies gastroenteritis 09/08/2014 None gas and bloating Pertinent Findings Denies nausea 09/08/2014 None headache Location diffusely 09/08/2014 None headache Quality intermittent 09/08/2014 None headache Frequency of Episodes weekly 09/08/2014 None headache Length of Episodes _ hours 09/08/2014 None headache Triggers stress 09/08/2014 None headache Pertinent Findings awakens from sleep 09/08/2014 None headache Pertinent Findings depressed mood 09/08/2014 None headache Pertinent Findings Denies dizziness 09/08/2014 None headache Pertinent Findings irritability 09/08/2014 None headache Pertinent Findings Denies nausea 09/08/2014 None menstrual irregularity Onset and Resolution ongoing 09/08/2014 PCOS menstrual irregularity Pertinent Findings Denies obesity 09/08/2014 None depression Quality stable 09/08/2014 None depression Onset and Resolution ongoing 09/08/2014 None depression Triggers stress 09/08/2014 None depression Pertinent Findings depressed mood 09/08/2014 None depression Pertinent Findings anxiety 09/08/2014 None depression Pertinent Findings irritability 09/08/2014 None menstrual irregularity Triggers no known associated factors 09/08/2014 - pt states that after having her last baby - she had a prolapsed uterus and post- hemorrhage - she states that she has a lot of constipation - and severe pain with periods - she reports that her cycles are really heavy - and they last about 7 daysshe did not want to be on control because she multiple different kinds of control - never found one that does not make her feel bad - mole check Location-Trunk on the left breast 06/12/2012 None mole check Location-Major on the abdomen 06/12/2012 None mole check Color brown 06/12/2012 not even- colored fatigue Quality worsening 06/12/2012 States she was severely anemic during . States she was on iron supplements throughout her but was still anemic. fatigue Pertinent Findings depressed mood 06/12/2012 States she has been taking celexa but her prescription ran out so she hasn't had it. fatigue Limitation on Activities does not limit activities 06/12/2012 None fatigue Onset of Symptom several months ago 06/12/2012 Had baby last October. States she is tired and unhappy. fatigue Frequency of Episodes increasing 06/12/2012 None fatigue Significant Medical Conditions anemia 06/12/2012 during fatigue Triggers no known associated factors 06/12/2012 None fatigue Pertinent Findings Denies cold intolerance 06/12/2012 None fatigue Pertinent Findings Denies confusion 06/12/2012 None fatigue Pertinent Findings Denies cough 06/12/2012 None fatigue Pertinent Findings Denies dizziness 06/12/2012 None fatigue Pertinent Findings Denies easy bruising 06/12/2012 None fatigue Pertinent Findings Denies easy bleeding 06/12/2012 None fatigue Pertinent Findings Denies heartburn 06/12/2012 None sore throat Location diffusely 08/02/2011 None sore throat Quality aching 08/02/2011 None sore throat Onset and Resolution sudden in onset 08/02/2011 None sore throat Onset of Symptom 2 days ago 08/02/2011 None sore throat Limitation on Activities does not limit oral intake 08/02/2011 None sore throat Frequency of Episodes increasing 08/02/2011 None sore throat Significant Medications acetaminophen 08/02/2011 None Advance Directives No Advance Directive data Encounters Encounter Performer Location Codes Date EST. PATIENT, LEVEL III Diagnosis: Uterovaginal prolapse, unspecified[ICD10: N81.4] Diagnosis: Cystocele, unspecified[ICD10: N81.10] [facility] CPT-4: 92875 11/02/2018 26705 EST. PATIENT, LEVEL III Diagnosis: Generalized anxiety disorder[ICD10: F41.1] Diagnosis: Major depressive disorder, single episode, moderate[ICD10: F32.1] Diagnosis: Premenstrual tension syndrome[ICD10: N94.3] [facility] CPT-4: 30029 08/06/2018 [id number] EST. PATIENT, LEVEL III Diagnosis: Generalized anxiety disorder[ICD10: F41.1] Diagnosis: Major depressive disorder, single episode, moderate[ICD10: F32.1] Diagnosis: Premenstrual tension syndrome[ICD10: N94.3] Dafne Benitez MD, [facility] CPT-4: 84204 07/06/2018 69833 EST. PATIENT, LEVEL III Diagnosis: Generalized anxiety disorder[ICD10: F41.1] Diagnosis: Major depressive disorder, single episode, moderate[ICD10: F32.1] Dafne Benitez MD, [facility] CPT-4: 23280 02/26/2018 ([id number]) PREV VISIT EST AGE 18-39 Diagnosis: Encounter for general adult medical examination with abnormal findings[ICD10: Z00.01] Diagnosis: Other fatigue[ICD10: R53.83] Diagnosis: Pelvic and perineal pain[ICD10: R10.2] Dafne Benitez MD, [facility] CPT-4: 86814 01/22/2018 ([id number]) 07467 EST. PATIENT, LEVEL IV Diagnosis: Menstrual irregularity[ICD9: 626.4] Diagnosis: Fatigue[ICD9: 780.79] Diagnosis: FLATUL/ERUCTAT/GAS PAIN[ICD9: 787.3] Diagnosis: Constipation - functional[ICD9: 564.09] Diagnosis: Depression[ICD9: 311] Jany Benitez MD, [facility] CPT-4: 28109 09/08/2014 14125 EST. PATIENT, LEVEL IV Diagnosis: Mole (skin)[ICD9: 216.9] Diagnosis: Depression[ICD9: 311] Diagnosis: Fatigue[ICD9: 780.79] [facility] CPT-4: 45425 06/12/2012 80422 EST. PATIENT, LEVEL III Diagnosis: Pharyngitis[ICD9: 462] [facility] CPT-4: 51898 08/02/2011 Plan of Care Planned Activity Notes Codes Status Date Referral: [facility]quis[facility]el[facility] [phone] [facility] [id number] Referral Initiated 11/05/2018 Visit Plan: Uterine/bladder prolapse - will refer - pt is to notify clinic with any changes, questions, or concerns. 11/02/2018 Appointment: Dafne Patel WPtel: [address] [place], [place] [phone] [place] (15 min) Moderate 11/02/2018 Patient Education: Patient Medication Summary Completed 11/02/2018 Care Plan: Referral Order SNOMED-CT : [id number] Pending 11/02/2018 Visit Plan: Chronic Depression and anxiety - the pt has symptoms of chronic anxiety and depression that have been fairly well controlled since the last office visit. The pt has expected periods of exacerbation with abatement of the symptoms with change in situational exposure. No change in current medications. PMS/PMDD - improved on increased prozac - pt is to notify clinic with any changes, questions, or concerns. 08/06/2018 Appointment: Dafne Patel WPtel: [facility] [place] (30 min) Complex 08/06/2018 Patient Education: Patient Medication Summary Completed 08/06/2018 Visit Plan: Chronic Depression and anxiety - the pt has symptoms of chronic anxiety and depression that have been fairly well controlled since the last office visit. The pt has expected periods of exacerbation with abatement of the symptoms with change in situational exposure. No change in current medications. PMS/PMDD - will increase prozac - pt is to notify clinic if symptoms do not improve, if they worsen, or with any changes, questions, or concerns. 07/06/2018 Appointment: Dafne Patel WPtel: [facility] [place] (15 min) Moderate 07/06/2018 Patient Education: Patient Medication Summary Completed 07/06/2018 Appointment: Dafne Patel WPtel: [facility]6 [facility] (15 min) Moderate 06/30/2018 Visit Plan: Chronic Depression and anxiety - the pt has symptoms of chronic anxiety and depression that have been fairly well controlled since the last office visit. The pt has expected periods of exacerbation with abatement of the symptoms with change in situational exposure. No change in current medications. 02/26/2018 Appointment: Dafne Patel WPtel: [address] [place], [place] [phone] (15 min) Moderate 02/26/2018 Patient Education: Patient Medication Summary Completed 02/26/2018 Appointment: Dafne Patel WPtel: [address] [place], [place] [phone] (15 min) Moderate 02/20/2018 Visit Plan: Well Adult Female - exam completed. Pap and breast exam completed. Pt will be called with results of her testing. She was advised to continue with yearly annual exams. Safe sex practices discussed during office visit today. Call if any abnormal gynecologic issues during the next year, otherwise, RTC yearly or prn. 01/22/2018 Visit Plan: Well Adult Female - exam completed. Pap and breast exam completed. Pt will be called with results of her testing. She was advised to continue with yearly annual exams. Safe sex practices discussed during office visit today. Call if any abnormal gynecologic issues during the next year, otherwise, RTC yearly or prn. 01/22/2018 Appointment: Dafne Patel WPtel: [address] [place], [place] [phone] (30 min) Complex 01/22/2018 Patient Education: Patient Medication Summary Completed 01/22/2018 Appointment: Dafne Patel WPtel: [address] [place], [place] [phone] [place] Well Woman 12/04/2017 Appointment: Jany Benitez WPtel: [address] [place], [place] [id number] 10/06/2014 Visit Plan: Menstrual irregularity - pt is not interested in starting on control at this time. Constipation - uncontrolled - I have discussed with the patient the need for adequate fiber and water intake to facilitate soft, easily passed stools. The pt noted understanding of our conversation. I have given the patient a recipe for "power pudding" - equal parts, bran flakes, prune juice, and apple sauce. The pt is to call if symptoms not improved on this regimen. start on power pudding Depression - uncontrolled - Pt has been counseled about the diagnosis of depression, the potential causes , and risks associated with the diagnosis. The pt denies suicidal ideation, or plans. The patient has been counseled about treatment options, and understands the risks associated with treatment of depression, as well as the risks associated with NOT treating the depression. I believe the pt will benefit from medical intervention and an antidepressant has been appropriately prescribed for this patient. change to lexapro Anemia - check labs rtc in 1 month 09/08/2014 Appointment: Jany Benitez WPtel: [phone] 09/08/2014 Patient Education: Patient Medication Summary Completed 09/08/2014 Visit Plan: Moles-monitor at home and retun in 3-6 months for skin check. Call if any changes and will remove lesions. Depression - uncontrolled - Pt has been counseled about the diagnosis of depression, the potential causes, and risks associated with the diagnosis. The pt denies suicidal ideation, or plans. The patient has been counseled about treatment options, and understands the risks associated with treatment of depression, as well as the risks associated with NOT treating the depression. I believe the pt will benefit from medical intervention and an antidepressant has been appropriately prescribed for this patient. Fatigue-check labs 06/12/2012 Appointment: Lydia Mehta WPtel: [phone] Other 06/12/2012 Patient Education: Patient Medication Summary Completed 06/12/2012 Visit Plan: Pharyngitis-Discussed natural and expected course of this diagnosis and need to alert me if symtpoms do not follow expected course, or if any worse. Recommended salt water garlges as needed for pain. Tylenol as needed for fever. RX for zithromax sent to [facility] in [place]. 08/02/2011 Appointment: Lydia Mehta WPtel: [phone] [phone] Other 08/02/2011 Patient Education: Patient Medication Summary Completed 08/02/2011 Referral: Adelina Marquis WPtel: [address] [place], [place] [phone] Referral Initiated Instructions Comment . Chronic Depression and anxiety - the pt has symptoms of chronic anxiety and depression that have been fairly well controlled since the last office visit. The pt has expected periods of exacerbation with abatement of the symptoms with change in situational exposure. No change in current medications. . Well Adult Female - exam completed. Pap and breast exam completed. Pt will be called with results of her testing. She was advised to continue with yearly annual exams. Safe sex practices discussed during office visit today. Call if any abnormal gynecologic issues during the next year, otherwise, RTC yearly or prn. . Well Adult Female - exam completed. Pap and breast exam completed. Pt will be called with results of her testing. She was advised to continue with yearly annual exams. Safe sex practices discussed during office visit today. Call if any abnormal gynecologic issues during the next year, otherwise, RTC yearly or prn. . Pharyngitis-Discussed natural and expected course of this diagnosis and need to alert me if symtpoms do not follow expected course, or if any worse. Recommended salt water garlges as needed for pain. Tylenol as needed for fever. RX for zithromax sent to [facility] in [place]. . Chronic Depression and anxiety - the pt has symptoms of chronic anxiety and depression that have been fairly well controlled since the last office visit. The pt has expected periods of exacerbation with abatement of the symptoms with change in situational exposure. No change in current medications. PMS/PMDD - improved on increased prozac - pt is to notify clinic with any changes, questions, or concerns. Check labs-cbc, cmp, tsh Refill celexa-call if symptoms do not improve, or if any worse. . Moles-monitor at home and retun in 3-6 months for skin check. Call if any changes and will remove lesions. Depression - uncontrolled - Pt has been counseled about the diagnosis of depression, the potential causes, and risks associated with the diagnosis. The pt denies suicidal ideation, or plans. The patient has been counseled about treatment options, and understands the risks associated with treatment of depression, as well as the risks associated with NOT treating the depression. I believe the pt will benefit from medical intervention and an antidepressant has been appropriately prescribed for this patient. Fatigue-check labs Declined Procedure: (78539) FLU VACC 4 DEJAN 3 YRS PLUS IM; Declined Reason: Given elsewhere . Menstrual irregularity - pt is not interested in starting on control at this time. Constipation - uncontrolled - I have discussed with the patient the need for adequate fiber and water intake to facilitate soft, easily passed stools. The pt noted understanding of our conversation. I have given the patient a recipe for "power pudding" - equal parts, bran flakes, prune juice, and apple sauce. The pt is to call if symptoms not improved on this regimen. start on power pudding Depression - uncontrolled - Pt has been counseled about the diagnosis of depression, the potential causes, and risks associated with the diagnosis. The pt denies suicidal ideation, or plans. The patient has been counseled about treatment options, and understands the risks associated with treatment of depression, as well as the risks associated with NOT treating the depression. I believe the pt will benefit from medical intervention and an antidepressant has been appropriately prescribed for this patient. change to lexapro Anemia - check labs rtc in 1 month . Chronic Depression and anxiety - the pt has symptoms of chronic anxiety and depression that have been fairly well controlled since the last office visit. The pt has expected periods of exacerbation with abatement of the symptoms with change in situational exposure. No change in current medications. PMS/PMDD - will increase prozac - pt is to notify clinic if symptoms do not improve, if they worsen, or with any changes, questions, or concerns. . Uterine/bladder prolapse - will refer - pt is to notify clinic with any changes, questions, or concerns.
--- OUTSIDE RECORDS SUMMARY | 2018-11-17 08:55 | XMS REPORT | Continuity of Care Document ---
Author Author [facility] Address Unknown Phone Unavailable Allergies There is no data. Medications There is no data. Problems Date Dx Coded Attending Type Code Diagnosis Diagnosed By 12/19/2011 599.0 URINARY TRACT INFECTION SITE NOT SPECIFIED 12/19/2011 788.1 DYSURIA 12/19/2011 788.41 URINARY FREQUENCY 12/19/2011 788.63 URGENCY OF URINATION 12/19/2011 JONATHAN TORRES DO 599.0 URINARY TRACT INFECTION SITE NOT SPECIFIED 12/19/2011 JONATHAN TORRES DO 788.1 DYSURIA 12/19/2011 JONATHAN TORRES DO 788.41 URINARY FREQUENCY 12/19/2011 JONATHAN TORRES DO 788.63 URGENCY OF URINATION 01/27/2013 462 PHARYNGITIS- STREP 01/27/2013 JONATHAN TORRES DO 462 PHARYNGITIS-STREP 10/17/2014 JONATHAN TORRES DO 034.0 STREPTOCOCCAL SORE THROAT Procedures Code Description [place] [id number] STREP A (IN-HOUSE) 01/27/2013 66232 STREP A (IN-HOUSE) 10/17/2014 Results There is no data. Encounters ACCT No. Visit Date/Time Discharge Status Pt. Type Provider Facility Loc./Unit Complaint [id number] 10/17/2014 09:08:00 10/17/2014 23:59:59 CLS Outpatient JONATHAN TORRES DO [id number] 01/27/2013 11:20:00 01/27/2013 23:59:59 CLS Outpatient [id number] 12/09/2017 11:40:00 12/09/2017 23:59:59 [facility] [place]
--- OUTSIDE RECORDS SUMMARY | 2018-11-17 08:55 | XMS REPORT | CCD ---
Author Author Lydia Mehta MD, [facility] Address [address] [place] [address] Phone Care Team Providers Care Protection Specialist Name Role Phone PP Unavailable CCM Unavailable Summary Purpose Interface Exchange Insurance Providers Payer name Policy type / Coverage type Covered republican ID Effective Begin Date Effective End Date [employer] [facility] Blue [employer]/[facility] [id number] 2017 Unknown Family history Side Diagnosis Age At Onset *Denies any medical problems Unknown Side Diagnosis Age At Onset *Denies any medical problems Unknown Social History Social History Element Codes Description Effective Dates Number of children Unknown 2 08/06/[address]: 048396859 Never smoker 09/08/2014 Alcohol history Unknown occasionally [...] Fill Instructions naproxen 500 mg tablet RxNorm: 562340 1 Tablet(s) PO BID 201711/06/2018 Active Prozac 40 mg capsule RxNorm: 082848 1 Capsule(s) PO daily 08/1811/15/2018 Active Prozac 40 mg capsule RxNorm: 587213 1 Capsule(s) PO daily 08/0607/31/2019 Active Prozac 40 mg capsule RxNorm: 145274 1 Capsule(s) PO daily 07/0608/04/2018 Inactive Prozac 20 mg capsule RxNorm: 370071 1 Capsule(s) PO daily 07/0107/30/2018 Inactive Prozac 20 mg capsule RxNorm: 303898 1 Capsule(s) PO daily 02/2605/26/2018 Inactive nystatin 100,000 unit/gram topical cream RxNorm: 576996 1 Gram(s) TOP BID as needed 01/22/2018 No Stop Date Active Diflucan 150 mg tablet RxNorm: 124410 1 Tablet(s) PO daily 01/28/2018 Inactive Prozac 10 mg capsule RxNorm: 509592 1 Capsule(s) PO daily 01/2202/20/2018 Inactive escitalopram 10 mg tablet RxNorm: 173353 1 Tablet(s) PO daily 09/08/2014 01/18/2018 Inactive Celexa 20 mg Tab RxNorm: 921360 1 Tablet(s) PO daily 201112/08/2012 Inactive Zithromax Z-Car 250 mg Tab RxNorm: 259921 Tablet(s) PO UD No Start Date 06/11/2012 Inactive + Iron Oral RxNorm: Oral No Start Date 06/11/2012 Inactive Loestrin 24 Fe 1 mg-20 mcg (24)/75 mg (4) Tab RxNorm: 6785132 1 Tablet(s) PO daily No Start Date 09/07/2014 Inactive Celexa 20 mg Tab RxNorm: 107932 1 Tablet(s) PO daily No Start Date [...] Observation Code Item Item Code Result Date Comp Metabolic Ieb830 NA 142 mEq/L 01/22/2018 Comp Metabolic Ath018 K 3.7 mEq/L 01/22/2018 Comp Metabolic Btd962 CL 105 mEq/L 01/22/2018 Comp Metabolic Ljk914 CO2 30.0 mEq/L 01/22/2018 Comp Metabolic Dpv169 ANION GAP 11 01/22/2018 Comp Metabolic Arn292 GLUCOSE 81 mg/dL 01/22/2018 Comp Metabolic Qjl470 Creat 0.6 mg/dL 01/22/2018 Comp Metabolic Gbf718 eGFR 121 ml/min/1.73m2 01/22/2018 Comp Metabolic Qev056 BUN 11 mg/dL 01/22/2018 Comp Metabolic Cae840 B/C Ratio 18.0 Ratio 01/22/2018 Comp Metabolic Jqe344 CALCIUM 9.9 mg/dL 01/22/2018 Comp Metabolic Bqx094 ALK PHOS 73 U/L 01/22/2018 Comp Metabolic Dds875 AST(SGOT) 21 U/L 01/22/2018 Comp Metabolic Hbu207 ALT(SGPT) 12 U/L 01/22/2018 Comp Metabolic Cnx433 BILI T 0.4 mg/dL 01/22/2018 Comp Metabolic Cyp335 ALBUMIN 4.7 g/dL 01/22/2018 Comp Metabolic Vzk609 TPRO 7.8 g/dL 01/22/2018 Comp Metabolic Chc605 GLOB 3.1 g/dL 01/22/2018 Comp Metabolic Vxz467 A/G Ratio 1.5 Ratio 01/22/2018 Comp Metabolic Idm494 Osmo 282 mOsmo 01/22/2018 Cbc With Differential Ord2 WBC 6.91 K/ul 01/22/2018 Cbc With Differential Ord2 RBC 4.02 M/ul 01/22/2018 Cbc With Differential Ord2 HGB 12.5 g/dl 01/22/2018 Cbc With Differential Ord2 HCT 39.4 % 01/22/2018 Cbc With Differential Ord2 Neut% 58.9 % 01/22/2018 Cbc With Differential Ord2 MCV 98.0 fl 01/22/2018 Cbc With Differential Ord2 Lymph% 26.5 % 01/22/2018 Cbc With Differential Ord2 MCH 31.1 pg 01/22/2018 Cbc With Differential Ord2 Sunflower% 10.7 % 01/22/2018 Cbc With Differential Ord2 [...] 1.83 K/ul 01/22/2018 Cbc With Differential Ord2 Sunflower ABS# 0.7 K/ul 01/22/2018 Cbc With Differential Ord2 Eos ABS# 0.2 K/ul 01/22/2018 Cbc With Differential Ord2 Baso ABS# 0.0 K/ul 01/22/2018 Lipid Ord30 CHOL 164 mg/dL 01/22/2018 Lipid Ord30 HDL 64.0 mg/dl 01/22/2018 Lipid Ord30 TRIG 87 mg/dL 01/22/2018 Lipid Ord30 LDL 83 mg/dL 01/22/2018 Lipid Ord30 C/HDL 2.6 Ratio 01/22/2018 Tsh Ord6 TSH (3rd IS) 2.35 [...] Macule to mid abdomen brown with slightly engineering specialist technician coloring in the central portion of the [...] Macule to mid abdomen brown with slightly engineering specialist technician coloring in the central portion of the [...] Code : 8480-6 BMI: 21.6 Code : 78819-2 Heart Rate 1 : 85 bpm Height: 5'2" SpO2: 97% Weight: 120 lbs 08/06/2018 Blood Pressure 1: 100/60 Code : 8480-6 BMI: 20.9 Code : 59120-2 Heart Rate 1 : 80 bpm Height: 5'2" SpO2: 98% Weight: 116 lbs 07/06/2018 Blood Pressure 1: 120/68 Code : 8480-6 BMI: 20.9 Code : 93088-8 Heart Rate 1 : 74 bpm Height: 5'2" SpO2: 97% Weight: 116 lbs 02/26/2018 Blood Pressure 1: 104/60 Code : 8480-6 BMI: 20.7 Code : 49907-6 Heart Rate 1 : 61 bpm Height: 5'2" SpO2: 98% Weight: 115 lbs 01/22/2018 Blood Pressure 1: 110/66 Code : 8480-6 BMI: 20.7 Code : 30435-9 Heart Rate 1 : 75 bpm Height: 5'2" SpO2: 97% Weight: 115 lbs 09/08/2014 Blood Pressure 1: 98/68 Code : 8480-6 BMI: 20.9 Code : 01077-3 Heart Rate 1 : 78 bpm Height: 5'2" Weight: 116 lbs 06/12/2012 Blood Pressure 1: 112/78 Code : 8480-6 Heart Rate 1: 82 bpm Respiratory Rate : 16 bpm Weight: 115 lbs 08/02/2011 Blood Pressure 1: 97/55 Code : 8480-6 BMI: 23.4 Code : 10604-2 Heart Rate 1 : 90 bpm Height: [...] unspecified[ICD10: N81.4] Diagnosis: Cystocele, unspecified[ICD10: N81.10] [facility] CPT-4: 25855 11/02/2018 09989 EST. PATIENT, LEVEL III Diagnosis: Generalized anxiety disorder[ICD10: F41.1] Diagnosis: Major depressive disorder, single episode, moderate[ICD10: F32.1] Diagnosis: Premenstrual tension syndrome[ICD10: N94.3] [facility] CPT-4: 43337 08/06/2018 [id number] EST. PATIENT, LEVEL III Diagnosis: Generalized anxiety disorder[ICD10: F41.1] Diagnosis: Major depressive disorder, single episode, moderate[ICD10: F32.1] Diagnosis: Premenstrual tension syndrome[ICD10: N94.3] Dafne Benitez MD, [facility] CPT-4: 23993 07/06/2018 22291 EST. PATIENT, LEVEL III Diagnosis: Generalized anxiety disorder[ICD10: F41.1] Diagnosis: Major depressive disorder, single episode, moderate[ICD10: F32.1] Dafne Benitez MD, [facility] CPT-4: 94703 02/26/2018 ([id number]) PREV VISIT EST AGE 18-39 Diagnosis: Encounter for general adult medical examination with abnormal findings[ICD10: Z00.01] Diagnosis: Other fatigue[ICD10: R53.83] Diagnosis: Pelvic and perineal pain[ICD10: R10.2] Dafne Benitez MD, [facility] CPT-4: 19028 01/22/2018 ([id number]) 48906 EST. PATIENT, LEVEL IV Diagnosis: Menstrual irregularity[ICD9: 626.4] Diagnosis: Fatigue[ICD9: 780.79] Diagnosis: FLATUL/ERUCTAT/GAS PAIN[ICD9: 787.3] Diagnosis: Constipation - functional[ICD9: 564.09] Diagnosis: Depression[ICD9: 311] Jany Benitez MD, [facility] CPT-4: 48577 09/08/2014 80553 EST. PATIENT, LEVEL IV Diagnosis: Mole (skin)[ICD9: 216.9] Diagnosis: Depression[ICD9: 311] Diagnosis: Fatigue[ICD9: 780.79] [facility] CPT-4: 16724 06/12/2012 60786 EST. PATIENT, LEVEL III Diagnosis: Pharyngitis[ICD9: 462] [facility] CPT-4: 82435 08/02/2011 Plan of Care Planned Activity Notes Codes Status Date Visit Plan: Uterine/bladder prolapse - will refer - pt is to notify clinic with any changes, questions, or concerns. 11/02/2018 Patient Education: Patient Medication Summary Completed 11/02/2018 Care Plan: Referral Order SNOMED-CT : [id number] Pending 11/02/2018 Visit Plan: Chronic Depression and [...] or concerns. 08/06/2018 Appointment: Dafne Patel WPtel: [facility]5 [facility] (30 min) Complex 08/06/2018 Patient Education: Patient [...] or concerns. 07/06/2018 Appointment: Dafne Patel WPtel: [facility] (15 min) Moderate 07/06/2018 Patient Education: Patient Medication Summary Completed 07/06/2018 Appointment: Dafne Patel WPtel: [facility] (15 min) Moderate 06/30/2018 Visit Plan: Chronic Depression and anxiety - the pt has symptoms of chronic anxiety and depression that have been fairly well controlled since the last office visit. The pt has expected periods of exacerbation with abatement of the symptoms with change in situational exposure. No change in current medications. 02/26/2018 Appointment: Dafne Patel WPtel: [facility] [place] (15 min) Moderate 02/26/2018 Patient Education: Patient Medication Summary Completed 02/26/2018 Appointment: Dafne Patel WPtel: [facility] [place] (15 min) Moderate 02/20/2018 Visit Plan: Well [...] or prn. 01/22/2018 Appointment: Dafne Patel WPtel: [facility] (30 min) Complex 01/22/2018 Patient Education: Patient Medication Summary Completed 01/22/2018 Appointment: Dafne Patel WPtel: [facility] 12/04/2017 Appointment: Jany Benitez WPtel: [facility]5 [facility] Follow up 10/06/2014 Visit Plan: Menstrual irregularity [...] 1 month 09/08/2014 Appointment: Jany Benitez WPtel: [address] [facility] Physical 09/08/2014 Patient Education: Patient Medication Summary [...] Fatigue-check labs 06/12/2012 Appointment: Lydia Mehta WPtel: [phone] Other 06/12/2012 Patient Education: Patient Medication Summary Completed 06/12/2012 Visit Plan: Pharyngitis-Discussed natural and expected course of this diagnosis and need to alert me if symtpoms do not follow expected course, or if any worse. Recommended salt water garlges as needed for pain. Tylenol as needed for fever. RX for zithromax sent to [facility] in [place]. 08/02/2011 Appointment: Lydia Mehta WPtel: [phone] Other 08/02/2011 Patient Education: Patient Medication Summary Completed 08/02/2011 Referral: Adelina Marquis WPtel: [address] [place] [address] Referral Initiated Instructions Comment . Chronic Depression [...] RX for zithromax sent to [facility] in [place]. . Chronic Depression and anxiety - the [...] for this patient. Fatigue-check labs Declined Procedure: (35782) FLU VACC 4 DEJAN 3 YRS PLUS [...]
[2018-11-17] MEDS ORDERED: ceFAZolin INJECTION 1,000 MG in NS (IVPB) 50 ML IV ONE (09:00)
[2018-11-17] MEDS ORDERED: CATHETER FLUSH 10 ML SYR IV PRN (09:15)
[2018-11-17] MEDS ORDERED: metroNIDAZOLE 500MG/100ML IVPB 100 ML ONE (09:50)
[2018-11-17] MEDS ORDERED: MIDAZOLAM 2 MG/2 ML (VERSED) VIAL IV ONE (10:00)
[2018-11-17] MEDS: LACTATED RINGERS 1,000 ML IV PRN ×3 (10:15→13:10)
--- NOTE | 2018-11-17 10:19 | Progress Note-Pre Operative ---
Pre-Operative Progress Note H&P Reviewed The H&P was reviewed, patient examined and no changes noted. Date Seen by Provider: Nov 17, 2018 Time Seen by Provider: 10:15 Date H&P Reviewed: Nov 17, 2018 Time H&P Reviewed: 10:00 Pre-Operative Diagnosis: incomplete urogenital prolapse, tej MARLA ARAGON DO Nov 17, 2018 10:19
[2018-11-17] MEDS ORDERED: proPOfol 200 MG/20 ML (DIPRIVAN) VIAL IV ONE (10:25)
[2018-11-17] MEDS ORDERED: SEVOFLURANE (ULTANE) 15 ML INHAL SOLN ONE ×5 (10:25→13:45)
[2018-11-17] MEDS ORDERED: ONDANSETRON 4 MG/2 ML (SDV) Z0FRAN ONE (10:25)
[2018-11-17] MEDS ORDERED: DEXAMETHASONE 10 MG/ML (DECADRON) 1 ML VIAL ONE (10:25)
[2018-11-17] MEDS ORDERED: MIDAZOLAM 2 MG/2 ML (VERSED) VIAL ONE (10:25)
[2018-11-17] MEDS ORDERED: fentaNYL INJECTION 100 MCG/2 ML AMP ONE ×2 (10:25→12:27)
[2018-11-17] MEDS ORDERED: ROCURONIUM 10 MG/ML 5 ML SYRINGE IV ONE ×2 (10:25→13:30)
[2018-11-17] MEDS ORDERED: ESTRADIOL VAGINAL CREAM 42.5 GM (ESTRACE) VG ONE (10:32)
[2018-11-17] MEDS ORDERED: VASOPRESSIN INJECTION 20 UNIT/ML VIAL ONE (10:32)
[2018-11-17] MEDS ORDERED: NS (IVPB) 100 ML ONE (10:32)
[2018-11-17] MEDS ORDERED: BUP/EPI 0.5% 1:200,000 (SENSORCAINE) 30 ML VIAL ONE (10:32)
[2018-11-17] MEDS ORDERED: PHENYLEPHRINE 100 MCG/ML 10 ML (ANESTHESIA) SYR ONE (11:16)
[2018-11-17] MEDS ORDERED: metroNIDAZOLE 500 MG/100 ML IVPB (PRE-MIX) IV ONE (12:15)
[2018-11-17] MEDS ORDERED: HYDROmorphone 2 MG/ML VIAL (DILAUDID) IV PRN (12:45)
[2018-11-17] MEDS ORDERED: ANTACID SUSP 30 ML UDC (MYLANTA) PO PRN (12:45)
[2018-11-17] MEDS ORDERED: BENZOCAINE/MENTHOL (DERMOPLAST) 56 ML CAN TP PRN (12:45)
[2018-11-17] MEDS ORDERED: SIMETHICONE 80 MG (MYLICON) CHEW PO PRN (12:45)
[2018-11-17] MEDS ORDERED: ONDANSETRON 4 MG/2 ML (SDV) Z0FRAN IV PRN (12:45)
[2018-11-17] MEDS: KETOROLAC 30 MG/ML VIAL IV PRN ×2 (13:30→20:03)
[2018-11-17] MEDS ORDERED: NEOSTIGMINE 1 MG/ML 5 ML SYRINGE ONE (13:36)
[2018-11-17] MEDS ORDERED: GLYCOPYRROLATE 0.2 MG/ML (ROBINUL) 2 ML VIAL ONE (13:36)
[2018-11-17] MEDS ORDERED: MEPERIDINE (DEMEROL) INJ 50 MG/ML IVP ONE (14:15)
[2018-11-17] MEDS ORDERED: HYDROmorphone 2 MG/ML VIAL (DILAUDID) IV ONE (14:15)
[2018-11-17] MEDS ORDERED: ONDANSETRON 4 MG/2 ML (SDV) Z0FRAN IVP PRN (14:15)
--- NOTE | 2018-11-17 14:35 | Anesthesia-General Post-Op ---
General Patient Condition Mental Status/LOC: Same as Preop Cardiovascular: Satisfactory Nausea/Vomiting: Absent Respiratory: Satisfactory Pain: Controlled Complications: Absent Post Op Complications Complications None Follow Up Care/Instructions Patient Instructions None needed. Anesthesia/Patient Condition Patient Condition Patient is doing well, no complaints, stable vital signs, no apparent adverse anesthesia problems. No complications reported per nursing. NORA SALGADO CRNA Nov 17, 2018 14:35
[2018-11-17] MEDS: LACTATED RINGERS 1,000 ML IV SCH ×3 (14:43→22:59)
[2018-11-17 15:10] VITALS: BP 102/66
[2018-11-17 16:21] VITALS: BP 107/63
[2018-11-17] MEDS: HYDROcodone/APAP 7.5 MG/325 MG (LORTAB, LORCET PLUS) TABLET PO PRN (17:01)
[2018-11-17] MEDS ORDERED: TRANEXAMIC ACID INJECTION 1,000 MG in D5W 100 ML IVPB 100 ML IV ONE (18:15)
[2018-11-17] MEDS ORDERED: FLU QUADRIvalent (5+ YOA) 2018-2019 (AFLURIA) 0.5 ML IM ONE (19:00)
[2018-11-17] MEDS: ONDANSETRON 4 MG/2 ML (SDV) Z0FRAN IV PRN ×2 (19:29→22:57)
[2018-11-17] MEDS: DOCUSATE SODIUM 100 MG (COLACE) CAP PO PRN (20:03)
[2018-11-17] MEDS ORDERED: CHLORASEPTIC LOZENGE MM ONE (22:36)
[2018-11-18 00:15] VITALS: BP 93/55
[2018-11-18 03:00] VITALS: BP 97/55
[2018-11-18] MEDS: KETOROLAC 30 MG/ML VIAL IV PRN (03:01)
[2018-11-18] MEDS ORDERED: HYDR-34 PO (03:07)
[2018-11-18] MEDS ORDERED: IBUP-844 PO (03:07)
[2018-11-18] MEDS ORDERED: Benzocaine/Menthol TP (03:07)
--- NOTE | 2018-11-18 03:09 | Discharge Inst-Women's Service ---
Discharge Inst-Women's Serv Depart Medication/Instructions New, Converted or Re-Newed RX: RX on Chart Final Diagnosis incomplete urogenital prolapse cystocele rectocele stress incontinence endometriosis Consults/Follow Up Additional Follow Up: Yes Activity Activity: Activity as Tolerated Driving Instructions: No Driving for 1 Week NO SMOKING: NO SMOKING Nothing Inside Vagina: No Douching, No [place] (for 12 weeks), No Tampons Diet Discharge Diet: No Restrictions Symptoms to Report to : Swelling Increased, Bleeding Excessive, Pain Increased, Fever Over 101 Degrees F, Vaginal Bleeding Increase, Cramps in Feet or Legs, Vaginal Discharge Foul For Any Problems or Questions: Contact Your Physician Skin/Wound Care Infection Signs and Symptoms: Increased Redness, Foul Odor of Wound, Increased Drainage, Skin Itchy or Has a Rash, Increased Swelling, Temperature Above 101 F Operative Area Clean and Dry: Keep Incision Clean/Dry, You May Remove Bandage ( remove bandages on abdomen after 3 days, unless soiled or wet and then can remove at that time and cover if needed, do not pull. remove in shower if needed. ) Stitches/[place]/Dermabond: MARLA Greenberg DO Nov 18, 2018 03:09
[2018-11-18] MEDS ORDERED: CHLORASEPTIC LOZENGE MM PRN (03:30)
[2018-11-18] MEDS ORDERED: IBUPROFEN 600 MG (MOTRIN) TAB PO PRN (05:30)
[2018-11-18 05:38] LABS: BASOPHILS % (AUTO) 0 % (0-10); EOSINOPHILS % (AUTO) 0 % (0-10); HEMATOCRIT 29 % (35-52); HEMOGLOBIN 9.7 G/DL (11.5-16.0); LYMPHOCYTES # (AUTO) 1.3 X 10^3 (1.0-4.0); LYMPHOCYTES % (AUTO) 10 % (12-44); MEAN CORPUSCULAR HEMOGLOBIN 32 PG (25-34); MEAN CORPUSCULAR HGB CONC 34 G/DL (32-36); MEAN CORPUSCULAR VOLUME 94 FL (80-99); MEAN PLATELET VOLUME 10.6 FL (7.4-10.4); MONOCYTES # (AUTO) 1.1 X 10^3 (0.0-1.0); MONOCYTES % (AUTO) 8 % (0-12); NEUTROPHILS # (AUTO) 10.3 X 10^3 (1.8-7.8); NEUTROPHILS % (AUTO) 81 % (42-75); PLATELET COUNT 209 10^3/uL (130-400); RED BLOOD COUNT 3.05 10^6/uL (4.35-5.85); RED CELL DISTRIBUTION WIDTH 12.8 % (10.0-14.5); WHITE BLOOD COUNT 12.8 10^3/uL (4.3-11.0)
[2018-11-18] MEDS: HYDROcodone/APAP 7.5 MG/325 MG (LORTAB, LORCET PLUS) TABLET PO PRN (08:15)
[2018-11-18 09:00] VITALS: BP 97/65
--- NOTE | 2018-11-18 09:03 | Physician Progress Note ---
Progress Note Assessment/Plan Date Seen by Provider: Nov 18, 2018 Time Seen by Provider: 09:00 Events since last exam Patient had 300 ml blood loss at the time of surgery. She had bleeding from the skin edges and most of the bleeding was from the vaginal portion of the procedure. the vagina was packed tightly, but I was called by nursing after she arrived to the floor that she had bled through to the packing and had obvious vaginal bleeding. The pad is wet with blood. I removed the pack and it was saturated. There is also bruising on the labia as well. recalled that she is a "bleeder" and had some excessive bleeding after her delivery. She has received Transexamic Acid IV. I examined and there is no acute bleeding. I replaced the pack and now have removed it. It is lightly saturated at the end but not completely saturated. She has not yet voided. There is no superficial bleeding. Assessment/Plan 1. POD #1 s/p RaTH, bilateral salpingectomy, anterior posterior colporrhaphy, solyx sling 2. postoperative bleeding If she voids and her pain is controlled will dc home today Vitals Last set of Vitals Signs Vital Signs Date Time Temp Pulse Resp B/P (MAP) Pulse Ox O2 Delivery O2 Flow Rate FiO2 11/18/18 03:00 98.3 72 18 97/55 (69) 99 Room Air I&O I&O Intake and Output 11/18/18 00:00 Intake Total 4470 ml Output Total 910 ml Balance 3560 ml Intake Oral 1200 ml IV Total 3270 ml Output Urine Total 910 ml Labs Laboratory Tests 11/18/18 05:10: White Blood Count 12.8H, Red Blood Count 3.05L, Hemoglobin 9.7#L, Hematocrit 29L , Mean Corpuscular Volume 94, Mean Corpuscular Hemoglobin 32, Mean Corpuscular Hemoglobin Concent 34, Red Cell Distribution Width 12.8, Platelet Count 209, Mean Platelet Volume 10.6H, Neutrophils (%) (Auto) 81H, Lymphocytes (%) (Auto) 10L, Monocytes (%) (Auto) 8, Eosinophils (%) (Auto) 0, Basophils (%) (Auto) 0, Neutrophils # (Auto) 10.3H, Lymphocytes # (Auto) 1.3, Monocytes # (Auto) 1.1H, Eosinophils # (Auto) 0.0, Basophils # (Auto) 0.0 MARLA ARAGON DO Nov 18, 2018 09:03
[2018-11-18] MEDS: DOCUSATE SODIUM 100 MG (COLACE) CAP PO PRN (09:15)
[2018-11-18 12:45] VITALS: BP 97/65
--- NOTE | 2018-11-27 15:47 | Operative Report ---
Operative Report Date of Procedure/Surgery Nov 17, 2018 Surgeon (s) MARLA ARAGON DO Paring Machine Operator (s): VERNON Ballard nec. to retract important neurovascular structures Post-Operative Diagnosis incomplete uterovaginal prolapse cystocele/rectocele Stress incontinence Procedure Performed RaTH, bilateral salpingectomy Anterioe posterior colporraphy solyx pubovaginal sling Description of Procedure Anesthesia Type: General Estimated blood loss (mL): 300 ml Specimen(s) collected/removed uterus and bilateral tubes Description of the Procedure After informed consent was obtained, patient was taken into the operating room where general anesthetic was found to be adequate. She was prepped and draped in the usual sterile fashion in the dorsal lithotomy position. A Gaston catheter was placed. A speculum was placed in the vagina. The cervix was visualized and was prolapsed to the introitus. The anterior lip was grasped with a sharp toothed tenaculum. The uterus was sounded and depth was approximately 10 centimeters. I placed the Arielle device. And then set the Arielle to 10 cm and a 3.5 cm collar was advanced over the cervix. I inserted the Arielle without difficulty, inflating the balloon and securing it around the fornix of the cervix. The collar was then secured with sutures at 12 o'clock. Attention was then turned to the patient's abdomen. A supraumbilical incision was made about 8 mm. A Veress needle was inserted and I had difficulty confirming intraabdominal placement, but was eventually able to confirm with a drop in pressure and the saline drop test. I then insufflated the abdomen to a maximum of 15 mmHg with warmed CO2 gas. I then placed an 8 mm trocar and then the Da Sameera camera and intraperitoneal placement was confirmed. I then determined the procedure could be continued robotically. The first robotic port was placed about 15 cm lateral to the right and left of the umbilical placement and slightly inferior. These are both 8 mm trocars. These were placed under direct visualization of the laparoscope. 0.25% Marcaine was injected prior to placement of all trocars. When all placements were confirmed, the patient was placed in steep Trendelenburg allowing adequate visualization and the robot was brought in for docking. The docking was accomplished without difficulty. A survey of the pelvis confirmed the above mentioned findings. I was able to visualize the round ligaments bilaterally and grasped them and cauterized with bipolar cautery and then cut with my shanique. At this point, I then did bilateral salpingectomy. I cut along the mesosalpinx with the monopolar shanique and then dissected up to the cornu bilaterally. I then moved to the uteroovarian ligaments. I sealed the vessel and transected bilaterally using the bipolar cautery and then cut with the monopolar shanique. I then moved my dissection to the posterior leaves of the broad ligament. I dissected the posterior leaves of the broad ligament off the uterine arteries skeletonizing them bilaterally. I then took a second clamp with the bipolar cautery and with the shanique, transected the vessels away from the lateral aspect to the cervical stroma. I dissected the anterior peritoneum off the lower uterine segment. I continually pushed the bladder back and I took excessively great care and I was eventually able to dissect the vesicouterine peritoneum off the lower uterine segment. I then dissected in a V fashion towards the midline between the uterosacral ligaments. This allowed me to skeletonize the uterine vessels bilaterally. The balloon on the ARIELLE was insufflated. This allowed me to see the ARIELLE circumferentially. I then performed a colpotomy anteriorly and then amputate with cervix away from the vaginal fornix. I then continued the colpotomy circumferentially. Once this was performed I noted that the cervix was very long and I performed a supracervical hysterectomy. Thus I replaced a shorter ( 6 cm arielle) and then reprepped to perform a trachelectomy, incising along the arielle cup. Thus removing the cervix and the uterus from the abdomen. The assistant nurse manager removed the uterus through the vagina. A sponge was left in the vagina to maintain pneumoperitoneum. I then began closure of the vaginal cuff. The uterus was left in the vagina to maintain pneumoperitoneum. I closed the apices of the vaginal cuff with 2-0 Vicryl V lock sutures with a colposuspension through the uterosacral ligaments. This suspended the apices of the vaginal cuff. I extended this to the midline from both sides and overlapped the V lock sutures in the midline. Excellent closure is noted and hemostasis is achieved. She had a very deep enterocele. I now did a colpotomy but reducing the enterocele with two layers of the pursestring of 0-Vicryl closing the enterocele space and shortening the uterosacral ligaments bilaterally. I was not able to visualize the left ureter during this time so before the cystoscopy, I gave her Indigo [place] IV. All the needles were removed from the patient's abdomen. Patient was now repositioned for the vaginal portion of the procedure. The Lonestar retractor was placed and sutured into place. The anterior vaginal epithelium was grasped in the midline with an Allis clamp. The anterior vaginal epithelium was injected with dilute vasopressin. I made a midline incision and dissected the uterovaginal fascia off of the vaginal epithelium. I now repaired the midline defect with interrupted mattress style figure of eight stitches of 2-0 Vicryl reducing the defect. I then excised the excess vaginal epithelium and then closed the defect with 2- vicryl in a running fashion. Now, A 1 cm incision was made in the suburethral space with a scalpel about 1.5 cm from the urethral meatus. I dissected bilaterally to the obturator membranes and then inserted the Solyx bilaterally and then tightened under the midurethra. I did a cystoscopy which was negative. There was bilateral urethral efflux of urine. I then kept 300 ml in the bladder and did a Cred. There was minimal leakage. The sling laid gently under the urethra and was not too tight. There was no intravesicular pathology. The incision was closed with 4-0 Monocryl in a running fashion. Gaston was reinserted. At this point I did a rectocele repair. I grasped the perineum on either side of the midline with the Wilder clamps and then incised the perineum in the midline. She had an old scarred area the was excised. I now injected with dilute vasopressin and then u undermined with Stein scissors and then incised in the midline. I then dissected the pubovaginal fascia and then repaired the defect in the midline with 2-0 Vicryl in interrupted mattress type sutures reducing the defect. And then excised the excess epithelium and then made a pyramidal incision in the perineum. I now repaired the perineum with 3-0 vicryl and then repaired the posterior epithelial defect with 2-0 vicryl in running fashion. Vaginal pack with Estrace cream was placed. Patient was awakened and taken to the recovery room in stable condition. Following the case, instrument counts were correct. The patient was repositioned in the supine position and awakened from general anesthesia without difficulty. She was taken to recovery in stable condition. She will be observed overnight. Findings of the Procedure 4th deg cystocele, uterine prolapse, greater than 45 degree urethral rotation. Allergies and Home Medications Allergies Coded Allergies: No Known Drug Allergies (Unverified , 11/16/18) Home Medications Docusate Sodium 100 Mg Capsule, 100 MG PO DAILY, (Reported) Fluoxetine HCl 40 Mg Capsule, 40 MG PO DAILY, (Reported) Hydrocodone Bit/Acetaminophen 1 Ea Tablet, 1 EA PO Q6H PRN for PAIN-MODERATE TO SEVERE no greater than 3 grams acetominophen per 24 hour Prescribed by: MARLA ARAGON on 11/18/18306 Ibuprofen 600 Mg Tablet, 600 MG PO Q6H PRN for PAIN-MILD Prescribed by: MARLA ARAGON on 11/18/18306 [Benzocaine/Menthol] 56 ML AEROSOL, 56 ML TP UD PRN for PAIN-MILD EXTERNAL USE ONLY Prescribed by: MARLA ARAGON on 11/18/18306 Patient Home Medication List Home Medication List Reviewed: MARLA Stewart DO Nov 27, 2018 3:47 pm
== END 2018-11-18 12:45 | disposition home or self-care (01) ==
LOC: SDC 08:45 → WS 15:10 → SDC 11-18 12:45
PROVIDERS: ATTEND Obstetrics & Gynecology
DX: N81.2 Incomplete uterovaginal prolapse (principal); N39.3 Stress incontinence (female) (male); N80.0 Endometriosis of uterus; N83.8 Other noninflammatory disorders of ovary, fallopian tube and broad ligament; R39.14 Feeling of incomplete bladder emptying; Z79.899 Other long term (current) drug therapy
CPT/HCPCS: 36415; 85025; 86850; 86900; 86901; 88307; 94664

== ENCOUNTER → 2019-08-10 | Outpatient (CLI) | payer BC ==
[~2019-08-10] MED LIST changes: +Benzocaine/Menthol TP; +HYDR-34 PO; +IBUP-844 PO
--- NOTE | 2019-08-10 12:21 | Diagnostic Imaging Report ---
PROCEDURE: US Gallbladder. TECHNIQUE: Multiple real-time grayscale images were obtained over the right upper quadrant in various projections. INDICATION: Abdominal pain. FINDINGS: There are no prior studies available for comparison. There is no evidence for cholelithiasis or acute cholecystitis and the common bile duct is not dilated. The liver does not appear to be enlarged. There is no focal mass involving the liver and the biliary tree is not abnormally distended. Spectral and color flow imaging of the portal vein shows that the vein is patent. The right kidney is unremarkable. The tail of the pancreas is obscured by bowel gas. The aorta is also partially obscured. IMPRESSION: 1. There is no evidence for an acute abnormality of the right upper quadrant. 2. If clinical concern regarding an underlying abnormality of the gallbladder persists and further imaging is desired, then nuclear medicine hepatobiliary scan will be recommended. Dictated by: Dictated on workstation # [id number]
== END ==
LOC: RAD 07:43
PROVIDERS: ATTEND Nurse Practitioner Family
DX: R10.11 Right upper quadrant pain (principal)
CPT/HCPCS: 76705

== ENCOUNTER → 2020-09-06 | Outpatient (CLI) | payer BC ==
--- NOTE | 2020-09-06 11:39 | Diagnostic Imaging Report ---
PROCEDURE: US Thyroid. TECHNIQUE: Multiple real-time grayscale images were obtained of the thyroid in various projections. INDICATION: Dysphagia and thyroid enlargement. Right lobe of thyroid measures 4.2 x 1.3 x 1.5 cm and left lobe measures 4.2 x 1.1 x 1.2 cm. Isthmus is 0.2 cm in thickness. Both lobes of the thyroid gland are homogeneous. No discrete thyroid mass is detected. IMPRESSION: Unremarkable thyroid ultrasound. Dictated by: Dictated on workstation # [id number]
== END ==
LOC: RAD 10:31
PROVIDERS: ATTEND Nurse Practitioner Family
DX: E04.9 Nontoxic goiter, unspecified (principal)
CPT/HCPCS: 76536

== ENCOUNTER → 2021-03-06 | Outpatient (CLI) | payer BC ==
--- NOTE | 2021-03-06 11:43 | Diagnostic Imaging Report ---
INDICATION: Abdominal pain COMPARISON: None. FINDINGS: Single supine radiographic view of the abdomen was obtained and demonstrates nondistended loops of small bowel. There is no large collection of free peritoneal air. Mild air and stool are seen scattered throughout the colon. No unexpected radiopaque foreign bodies are seen. Rounded calcifications are noted projecting over the pelvis, bilaterally. Bony structures show no gross acute abnormalities. IMPRESSION: 1. Nonobstructed small bowel gas pattern. 2. Probable pelvic phleboliths, although distal ureteral or urinary bladder calculi cannot be entirely excluded. Dictated by: Dictated on workstation # [id number]
== END ==
LOC: RAD 11:20
PROVIDERS: ATTEND Nurse Practitioner Family
DX: R10.9 Unspecified abdominal pain (principal); R14.0 Abdominal distension (gaseous)
CPT/HCPCS: 74018